=== PATIENT | female | born 1955 | race Caucasian/White ===

== ENCOUNTER → 2017-08-27 | Outpatient (CLI) | payer OTHER ==
[~2017-08-27] VITALS: Ht 165.1 cm; Wt 59.9 kg
[~2017-08-27] MED LIST: CHILDREN'S ASPI81 MG PO; CLONAZEPAM 1 MG1 M1 PO; CORTEF5 MG PO; FLUDROCORTISONE PO; LAMICTAL200 MG PO; LOXAPINE10 MG PO; NAPROSYN500 MG PO; NORCO 5-325 TA1 EACH PO; OMEPRAZOLE20 M2 PO; PAXIL20 MG PO; PERCOCET 7.5-31 EACH PO; [UNRECOGNIZED DRUG - OTHER] PO
--- NOTE | ~2017-08-27 | P ---
[facility] [place] [address] PROCEDURE REPORT Name: MICHELLE DE LA CRUZ Room #: REG [facility]#: [id number] Admission: 08/27/17 Attend Phys: Osmany Richmond Discharge: Date of : 51 Report #: [id number] THIS REPORT FOR: //name// CC: Osmany Hernandez DATE OF SERVICE: 08/27/2017 PROCEDURE PERFORMED: Upper endoscopy with biopsies. HISTORY OF PRESENT ILLNESS: The patient is a 61-year-old female with a history of gastroesophageal reflux disease and Kwan esophagus, last upper endoscopy was in 2014. Biopsies at that time showed Kwan's with no dysplasia. The patient is on daily PPI therapy. She denies any heartburn symptoms or dysphagia. Plan is for repeat upper endoscopy with biopsies. DESCRIPTION OF PROCEDURE: The risks and benefits of the procedure were explained to the patient, those risks including but not limited to bleeding, perforation, the risk of sedation. She understood these risks and gave informed consent. Sedation was given using propofol per Anesthesia. Next, using a standard Olympus upper endoscope, the scope was placed in the patient's mouth and advanced under direct vision through the esophagus, stomach and into the second portion of the duodenum. The larynx was normal in appearance. The upper and mid esophagus was normal. In the distal esophagus, there was approximately a 5-7 cm length of Kwan esophagus again noted. No evidence of esophagitis or stricture. Random biopsies were obtained. Upon entering the stomach, a medium-sized hiatal hernia was noted. Overall, the gastric mucosa was normal. The pylorus was normal and patent. The duodenal bulb, first and second portion were all normal. The scope was then withdrawn and the procedure terminated. The patient tolerated the procedure well. IMPRESSION: 1. Segment of Kwan esophagus, status post biopsies. 2. Hiatal hernia. 3. Otherwise, normal upper endoscopy. RECOMMENDATIONS: 1. Await biopsy results. 2. Continue daily PPI therapy. [facility] [place] [address] PROCEDURE REPORT Name: MICHELLE DE LA CRUZ [id number] Admission: 08/27/17 Attend Phys: Osamny Richmond Discharge: Date of : 51 Report #: [id number] Thank you for allowing me to participate in her care. By: 0834 0843 Osmany Fuentes MD /amrita
--- NOTE | ~2017-08-27 | P ---
[facility] [place] [address] PROCEDURE REPORT Name: MICHELLE DE LA CRUZ Room #: REG [facility]#: [id number] Admission: 08/27/17 Attend Phys: Osmany Richmond Discharge: Date of : 51 Report #: [id number] THIS REPORT FOR: //name// CC: Osmany Hernandez MD DATE OF SERVICE: 08/27/2017 PROCEDURE PERFORMED: Colonoscopy. HISTORY OF PRESENT ILLNESS: The patient is a 61-year-old female with a history of colon polyps, here for routine followup. No family history of colon cancer. She denies any symptoms. DESCRIPTION OF PROCEDURE: The risks and benefits of the procedure were explained to the patient, those risks including but not limited to bleeding, perforation, the risk of sedation. She understood these risks and gave informed consent. Sedation was given using propofol per Anesthesia. Next, a digital rectal exam was initially performed, which was normal. Next, using a standard Olympus colonoscope, the scope was placed in the patient's anus and advanced under direct vision to the cecum. The overall prep was good. Cecum and ileocecal valve were normal in appearance. Ascending, transverse and descending colon were normal. A few small scattered diverticula were noted in the sigmoid colon, no evidence of inflammation, otherwise normal. The rectal mucosa was normal. On retroflexion, no abnormalities were noted. The scope was then withdrawn and the procedure terminated. The patient tolerated the procedure well. IMPRESSION: 1. Sigmoid diverticulosis. 2. Otherwise, normal colonoscopy. RECOMMENDATIONS: Repeat colonoscopy in 10 years. Thank you for allowing me to participate in her care. By: 0917 0947 Osmany Fuentes MD /nt
== END | disposition home or self-care (01) ==
LOC: GI 06:56
DX: Z09 Encounter for follow-up examination after completed treatment for conditions other than malignant neoplasm (principal); Z86.010 Personal history of colon polyps; K57.30 Diverticulosis of large intestine without perforation or abscess without bleeding; K22.70 Barrett's esophagus without dysplasia; K44.9 Diaphragmatic hernia without obstruction or gangrene; F31.9 Bipolar disorder, unspecified; F41.9 Anxiety disorder, unspecified; Z90.710 Acquired absence of both cervix and uterus; Z98.890 Other specified postprocedural states; Z79.82 Long term (current) use of aspirin; Z79.899 Other long term (current) drug therapy
CPT/HCPCS: 43239; G0105; 62110; 62900

== ENCOUNTER 2017-09-11 05:34 | Emergency (ER) | payer OTHER ==
[~2017-09-11] VITALS: Ht 165.1 cm; Wt 59.9 kg
[2017-09-11 05:41] VITALS: BP 111/64
[2017-09-11] MEDS ORDERED: MOBIC15 MG PO (05:57)
== END 2017-09-11 06:03 | disposition home or self-care (01) ==
LOC: ER 05:34
DX: S50.02XA Contusion of left elbow, initial encounter (principal); F31.9 Bipolar disorder, unspecified; K21.9 Gastro-esophageal reflux disease without esophagitis; W22.8XXA Striking against or struck by other objects, initial encounter; Y93.89 Activity, other specified; Y92.89 Other specified places as the place of occurrence of the external cause; Y99.8 Other external cause status

== ENCOUNTER 2017-11-08 10:12 | Emergency (ER) | payer OTHER ==
[~2017-11-08] VITALS: Ht 165.1 cm; Wt 59.9 kg
[~2017-11-08 10:12] MED LIST changes: +MOBIC15 MG PO
[2017-11-08 10:15] VITALS: BP 114/47
[2017-11-08] MEDS ORDERED: MOBIC15 MG PO (11:08)
== END 2017-11-08 11:18 ==
LOC: ER 10:12
DX: S80.212A Abrasion, left knee, initial encounter (principal); F31.9 Bipolar disorder, unspecified; E27.40 Unspecified adrenocortical insufficiency; Z90.710 Acquired absence of both cervix and uterus; K21.9 Gastro-esophageal reflux disease without esophagitis; F41.9 Anxiety disorder, unspecified; W01.0XXA Fall on same level from slipping, tripping and stumbling without subsequent striking against object, initial encounter; Y92.89 Other specified places as the place of occurrence of the external cause; Y93.89 Activity, other specified; Y99.8 Other external cause status

== ENCOUNTER → 2019-01-29 | Outpatient (CLI) | payer OTHER ==
[~2019-01-29] VITALS: Ht 165.1 cm; Wt 68.5 kg
[~2019-01-29] MED LIST changes: +OXYBUTYNIN 5 MG5 M2 PO
--- NOTE | 2019-02-03 08:51 | P ---
[facility] [place] [address] PROCEDURE REPORT Name: MICHELLE DE LA CRUZ Room #: REG [facility]#: [id number] Admission: 01/29/19 Attend Phys: Osmany Richmond Discharge: Date of : 53 Report #: [id number] THIS REPORT FOR: //name// CC: Osmany Hernandez MD DATE OF SERVICE: 01/29/2019 PROCEDURE PERFORMED: Upper endoscopy with Botox injection. HISTORY OF PRESENT ILLNESS: The patient is a 63-year-old female with a history of progressive dysphagia. She has undergone upper endoscopy with dilation. She has a known hiatal hernia, tortuous esophagus, and later underwent esophageal manometry with findings consistent with likely achalasia. She also had an upper GI also consistent with achalasia. I had a discussion with her in the office recently about possible Botox injection versus surgery. The plan is to proceed with Botox injection of her lower esophageal sphincter. DESCRIPTION OF PROCEDURE: The risks and benefits of the procedure were explained to the patient, those risks including but not limited to bleeding, perforation and the risk of sedation. She understood these risks and gave informed consent. Sedation was given using propofol per anesthesia. Next, using a standard Olympus upper endoscope, the scope was placed in the patient's mouth and advanced under direct vision through the esophagus, stomach, and into the second portion of the duodenum. The larynx was normal in appearance. The upper esophagus was normal. In the mid and distal esophagus, it was once again dilated and tortuous. GE junction was normal. No evidence of esophagitis. Upon entering the stomach again, a large hiatal hernia was noted. Overall, the gastric mucosa was normal. The pylorus was normal and patent. The duodenal bulb, first and second portion were all normal. The scope was then brought back up into the patient's distal esophagus. I then proceeded with injecting Botox into the lower esophageal sphincter area in a 4-quadrant fashion, 1 mL in each quadrant. There was no evidence of bleeding after injection. At this point, the scope was then withdrawn and the procedure terminated. The patient tolerated the procedure well. IMPRESSION: 1. Findings consistent with achalasia and tortuous esophagus. 2. Large hiatal hernia. RECOMMENDATIONS: Observe the patient status post Botox injection. [address] [address] PROCEDURE REPORT Name: MICHELLE DE LA CRUZ Room #: REG [facility] Tegan#: [id number] Admission: 01/29/19 Attend Phys: Osmany Richmond Discharge: Date of : 53 Report #: [id number] Thank you for allowing me to participate in her care. <ELECTRONICALLY SIGNED> By: Osmany Fuentes MD 02/03/19 0851 0917 1458 Osmany Fuentes MD /nt
== END | disposition home or self-care (01) ==
LOC: GI 07:21
DX: K22.0 Achalasia of cardia (principal); R13.19 Other dysphagia; K22.8 Other specified diseases of esophagus; K44.9 Diaphragmatic hernia without obstruction or gangrene; K21.9 Gastro-esophageal reflux disease without esophagitis; F32.1 Major depressive disorder, single episode, moderate; F41.9 Anxiety disorder, unspecified; Z90.710 Acquired absence of both cervix and uterus; Z98.890 Other specified postprocedural states; Z79.899 Other long term (current) drug therapy; Z79.82 Long term (current) use of aspirin
CPT/HCPCS: 62110; 62900

== ENCOUNTER 2019-07-25 15:24 | Inpatient (IN) | payer OTHER ==
[~2019-07-25] VITALS: Ht 152.4 cm; Wt 62.5 kg
[2019-07-25 15:25] VITALS: BP 101/67
[2019-07-25 16:13] LABS: HEMATOCRIT 39.6 % (37.0-47.0); HEMOGLOBIN 12.7 gm/dL (12.0-15.0); MCH 29.4 pg (26.0-34.0); MCHC 32.1 g/dL (28.0-37.0); MCV 91.6 fL (80.0-100.0); PLATELET COUNT 206 thou/uL (150-400); RBC 4.32 mil/uL (4.20-5.00); WBC 4.6 thou/uL (4.0-11.0)
[2019-07-25 16:15] LABS: CALCIUM 8.6 mg/dL (8.5-10.1); CREATININE 1.1 mg/dL (0.6-1.0); POTASSIUM 3.4 mmol/L (3.5-5.1)
[2019-07-25 16:25] LABS: ALBUMIN 3.4 g/dL (3.4-5.0); TOTAL BILIRUBIN 0.3 mg/dL (<0.1-1.0); TROPONIN-I 0.16 ng/mL (<0.06)
[2019-07-25 16:44] LABS: ABSOLUTE NEUTROPHILS 3.7 thou/uL (1.4-8.2); METAMYELOCYTES 1 %
[2019-07-25 16:45] LABS: OVALOCYTES 1+; POIKILOCYTOSIS 1+
[2019-07-25 16:46] LABS: ANISOCYTOSIS 3+; PLATELET ESTIMATE NORMAL
[2019-07-25 17:45] VITALS: BP 91/51
[2019-07-25 18:24] VITALS: BP 102/61
[2019-07-25 19:37] VITALS: BP 110/66
--- NOTE | 2019-07-25 19:43 | NUR ---
PT. ARRIVED AT FLOOR AROUND 1814; PT. AOX4; FALL AT RISK; EDUCATED ABOUT CALLING BEFORE STANDING FROM BED; ST. UNDERSTANDING; IV FLUIDS STARTED; PO POTASSIUM GIVEN; NO C/O PAIN; SR ON THE MONITOR; PASSED ON REPORT;
[2019-07-25 23:18] LABS: URINE BILIRUBIN NEGATIVE (Negative); URINE BLOOD NEGATIVE (Negative); URINE CLARITY CLEAR; URINE COLOR YELLOW; URINE GLUCOSE-RANDOM* NEGATIVE (Negative); URINE KETONES NEGATIVE (Negative); URINE NITRITE-REFLEX NEGATIVE (Negative); URINE PROTEIN (DIPSTICK) NEGATIVE (Negative); URINE SPECIFIC GRAVITY 1.015 (1.005-1.035); URINE UROBILINOGEN 0.2 E.U./dl (0.2-1.0)
[2019-07-25 23:26] LABS: URINE LEUKOCYTES-REFLEX 2+ (Negative)
[2019-07-25 23:28] LABS: BACTERIA-REFLEX None Seen /HPF (None Seen); CASTS None Seen /LPF (None Seen); CRYSTALS None Seen /LPF (None Seen); MUCUS None Seen strn/LPF (None Seen); SQUAMOUS None Seen /LPF (0-3); URINE RBC None Seen /HPF (0-2); URINE WBC-REFLEX 0-5 Rare /HPF (0-5)
[2019-07-25 23:39] LABS: AMP/METHAMP Negative (Negative); BARBITURATES Negative (Negative); BENZODIAZEPINES Negative (Negative); COCAINE Negative (Negative); METHADONE Negative (Negative); OPIATES Negative (Negative); PCP Negative (Negative)
[2019-07-26] VITALS (7 sets, daily range): BP systolic 108–134; BP diastolic 65–88
[2019-07-26 03:07] LABS: GLYCOHEMOGLOBIN (HGB A1C) 4.9 % (4.8-5.6)
--- NOTE | 2019-07-26 03:09 | NUR ---
PT ADMITTED TO ROOM 201 AFTER SYNCOPAL EPISODE AT HOME, NO C/O PAIN, IV FLUIDS INFUSING IN R FA, UP WITH ASSIST TO VOID, UA SENT TO LAB, VSS, SAT 98% ON RA, k+ LOW AND REPLACED WITH PO, CONSENTS SIGNED, PT HOPES TO GO HOME SOON, WILL CON'T TO MONITOR PER PPOC.
--- NOTE | 2019-07-26 08:37 | EKG ---
[facility] [place] [address] ELECTROCARDIOGRAM REPORT Name: MICHELLE DE LA CRUZ Room #: 201- ADM IN M.R.#: [id number] Admission: 07/25/19 Attend Phys: Shanti Hale MD Discharge: Date of : 53 Report #: [id number] THIS REPORT FOR: cc: Johnathon Chiang MD, Christopher B. 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 : 1955 Requested By: Tim Sims Order Number: [id number] MD: Gio Hannon Measurements Intervals [place] Rate: 82 P: 42 TN: 154 QRS: 3 QRSD: 100 T: 62 QT: 436 QTc: 510 Interpretive Statements Sinus rhythm Borderline prolonged QT interval Artifact in lead(s) I,II,III,aVR,aVL,aVF No previous ECG available for comparison Electronically Signed On 07-26-2019 8:36:06 CDT by Gio Hannon [email or web address] <ELECTRONICALLY SIGNED> By: Gio Hannon MD, [facility] 07/26/19 0836 1551 1551 Gio Hannon MD, [facility] /EPI
--- NOTE | 2019-07-26 08:38 | EKG ---
[facility] [place] [facility] [place] [address] ELECTROCARDIOGRAM REPORT Name: MICHELLE DE LA CRUZ Room #: 201- ADM IN M.R.#: [id number] Admission: 07/25/19 Attend Phys: Shanti Hale MD Discharge: Date of : 53 Report #: [id number] THIS REPORT FOR: cc: Johnathon Chiang MD, Christopher B. MD Lundgren, Craig H. 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
[2019-07-26 10:27] LABS: ABSOLUTE NEUTROPHILS 3.3 thou/uL (1.4-8.2); BASOPHILS 1.1 % (0.0-2.0); EOSINOPHILS 5.5 % (0.0-3.0); HEMATOCRIT 35.9 % (37.0-47.0); HEMOGLOBIN 11.7 gm/dL (12.0-15.0); LYMPHOCYTES 24.5 % (24.0-44.0); MCH 29.3 pg (26.0-34.0); MCHC 32.5 g/dL (28.0-37.0); MCV 90.1 fL (80.0-100.0); MONOCYTES 8.3 % (1.0-8.0); PLATELET COUNT 217 thou/uL (150-400); POLYS 60.6 % (36.0-66.0); RBC 3.99 mil/uL (4.20-5.00); RDW 24.4 % (10.5-14.5); WBC 5.4 thou/uL (4.0-11.0)
[2019-07-26 10:36] LABS: ALBUMIN 3.1 g/dL (3.4-5.0); CALCIUM 8.5 mg/dL (8.5-10.1); CREATININE 0.7 mg/dL (0.6-1.0); MAGNESIUM 2.2 mg/dL (1.8-2.4); PHOSPHORUS 3.1 mg/dL (2.5-4.9); POTASSIUM 3.4 mmol/L (3.5-5.1); TOTAL BILIRUBIN 0.4 mg/dL (<0.1-1.0); TOTAL PROTEIN 6.3 g/dL (6.4-8.2)
[2019-07-26 11:13] LABS: ANISOCYTOSIS 3+
[2019-07-26 11:14] LABS: OVALOCYTES FEW; POIKILOCYTOSIS SLIGHT
--- NOTE | 2019-07-26 18:14 | NUR ---
ASSUMED CARE AT SHIFT CHANGE, ASSESSMENT DOCUMENTED, AND VSS. PATIENT DENIES ANY DISCOMFORT, AND WILL CONTINUE WITH POC.
[2019-07-27 00:07] LABS: CORTISOL RANDOM 10.1 ug/dL (())
[2019-07-27 04:35] VITALS: BP 141/68
[2019-07-27 05:18] LABS: CALCIUM 8.2 mg/dL (8.5-10.1); CREATININE 0.8 mg/dL (0.6-1.0); MAGNESIUM 1.9 mg/dL (1.8-2.4); POTASSIUM 3.5 mmol/L (3.5-5.1)
[2019-07-27 05:28] LABS: HEMATOCRIT 36.8 % (37.0-47.0); HEMOGLOBIN 11.8 gm/dL (12.0-15.0); MCH 29.1 pg (26.0-34.0); MCHC 32.1 g/dL (28.0-37.0); MCV 90.6 fL (80.0-100.0); PLATELET COUNT 216 thou/uL (150-400); RBC 4.07 mil/uL (4.20-5.00); RDW 24.7 % (10.5-14.5); WBC 5.4 thou/uL (4.0-11.0)
--- NOTE | 2019-07-27 05:41 | NUR ---
Pt. stated she slept well during the night. Up with assist to bathroom with steady gait. No syncopal episode or dysrythmia.IV came out when she got up this am. New IV placed on left FA.Bed alarm on for safety and she calls appropriately for assistance. Making progress towards care plan goals.
[2019-07-27 07:25] VITALS: BP 130/67
[2019-07-27 07:50] LABS: ABSOLUTE NEUTROPHILS 2.9 thou/uL (1.4-8.2); PLATELET ESTIMATE NORMAL
--- NOTE | 2019-07-27 10:34 | NUR ---
Sp with patient via phone. 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 She lives in independent home with xhusband who is avail to assist at ri. She reports her PCP is Dr Greg Chiang. Plans home independently at ri. She rec disability. Casemgt following.
[2019-07-27 11:10] VITALS: BP 118/74; BP 122/76; BP 125/70
[2019-07-27 16:10] VITALS: BP 116/80
--- NOTE | 2019-07-27 17:11 | NUR ---
ASSUMED CARE AT SHIFT CHANGE, ASSESSMENT DOCUMENTED, ALERT AND ORIENT AND UP ADLIB, VSS AND AFEBRILE, AND DENIES ANY DISCOMFORT. AND WILL CONTINUE WITH POC.
[2019-07-27 19:52] VITALS: BP 124/73
--- NOTE | 2019-07-28 04:47 | NUR ---
Pt. stated she slept well during the night.Up ad jaydon in room with steady gait. No syncopal episode. Progressing towards discharge goals.
[2019-07-28 04:55] VITALS: BP 133/74
[2019-07-28 05:10] LABS: HEMATOCRIT 38.5 % (37.0-47.0); HEMOGLOBIN 12.6 gm/dL (12.0-15.0); MCH 29.6 pg (26.0-34.0); MCHC 32.7 g/dL (28.0-37.0); MCV 90.4 fL (80.0-100.0); RBC 4.26 mil/uL (4.20-5.00); RDW 24.4 % (10.5-14.5); WBC 5.2 thou/uL (4.0-11.0)
[2019-07-28 05:45] LABS: ANION GAP 10 mmol/L (7-16); BUN 10 mg/dL (7-18); CALCIUM 8.7 mg/dL (8.5-10.1); CHLORIDE 108 mmol/L (98-107); CO2 27 mmol/L (21-32); CREATININE 0.9 mg/dL (0.6-1.0); GLUCOSE 89 mg/dL (74-106); POTASSIUM 3.9 mmol/L (3.5-5.1); SODIUM 145 mmol/L (136-145); TROPONIN-I <0.06 ng/mL (<0.06)
[2019-07-28 07:10] VITALS: BP 131/82
--- NOTE | 2019-07-28 09:32 | NUR ---
PT ALERT AND ORIENTED TIMES FOUR. VSS, SR ON TELE. PT DENIES PAIN/SOA. PT TOLERATED MEDS AND BREAKFAST. PT UP AB HANK WITH STEADY GAIT. PLANS FOR DISCHARGE TODAY.
--- NOTE | 2019-07-28 10:19 | HC ---
[facility] [place] [address] CONSULTATION Name: MICHELLE DE LA CRUZ Room #: 201-P [facility] IN M.R.#: [id number] Admission: 07/25/19 Attend Phys: Shanti Hale MD Discharge: Date of : 53 Report #: [id number] THIS REPORT FOR: cc: Johnathon Chiang MD,Bertin Andre MD, MD ~ CC: Shanti Chiang DATE OF SERVICE: 07/26/2019 CONSULTING: Dr. Sotelo. REASON FOR CONSULTATION: Hyperglycemia, adrenal insufficiency. HISTORY OF PRESENT ILLNESS: This is a 63-year-old female patient who was admitted yesterday following a syncopal episode, which was not preceded by much in terms of symptoms on the day prior to presentation. The patient denies chest pain, seizure activity or similar episodes in the past. The patient does not have any prior history of diabetes mellitus or otherwise abnormal blood glucose values. The patient notes that she was diagnosed with adrenal insufficiency about 4 years ago and was treated with oral steroids for 2 years, but then had none of these for about 2 years as she ran out and never pursued a refill for these according to her; however, she denies any frequent occurring of nausea, vomiting, lightheadedness, dizziness, or syncope besides the presenting episode or weight changes. In fact, she had a major esophageal resection surgery about 6 weeks ago and did very well preoperatively without noted complications. REVIEW OF SYSTEMS: CONSTITUTIONAL: Intermittent issues with fatigue, tiredness, but not weight changes, fever or chills. HEENT: Negative for sore throat, sinus pain or ear drainage. PULMONARY: Negative for shortness of breath, cough or hemoptysis. CARDIAC: Negative for chest pain, palpitations, but noted for the syncopal episode on presentation. GASTROINTESTINAL: Negative for abdominal pain, nausea, vomiting or changes in bowel movement frequency. NEUROLOGY: Negative for loss of consciousness, other than the presenting episode, seizure activity or frequent severe headaches. PSYCHIATRIC: Negative for delusions or hallucinations. The patient has bipolar at baseline and is controlled on the current medical therapy. DERMATOLOGY: Negative for rash, ulceration or other major abnormalities. Otherwise, review of systems noncontributory other than those mentioned in HPI. [address] [address] CONSULTATION Name: MICHELLE DE LA CRUZ Room #: 201-P [facility] IN M.R.#: [id number] Admission: 07/25/19 Attend Phys: Shanti Hale MD Discharge: Date of : 51 Report #: [id number] PAST MEDICAL HISTORY: 1. GERD. 2. Bipolar disorder. 3. Adrenal insufficiency. 4. Depression and anxiety. 5. Bilateral carpal tunnel syndrome. OUTPATIENT MEDICATIONS: Include lamotrigine 200 mg at bedtime, omeprazole 20 mg daily, loxapine 30 mg at bedtime, oxybutynin 5 mg q.a.m., Paxil 10 mg daily. ALLERGIES: No known drug allergies. FAMILY HISTORY: Noncontributory. SOCIAL HISTORY: The patient denies use of tobacco, alcohol or illicit drugs. She is . She does not have children. PHYSICAL EXAMINATION: GENERAL: Pleasant female patient who is not in apparent pain or distress. VITAL SIGNS: Blood pressure is 125/72 mmHg, heart rate is 77 beats per minute, respiration 22 per minute, temperature 36.6 degrees. CONSTITUTIONAL: The patient is sitting upright in bed, appears comfortable, not in pain or distress. HEENT: Anicteric sclerae. Intact extraocular motions. NECK: Supple, without JVD, carotid bruits or lymphadenopathy. I do not appreciate thyromegaly. CHEST: Noted for moderate entry bilaterally with scattered rales. No rhonchi, crackles or wheezes. HEART: Regular rate and rhythm without murmurs or gallops. ABDOMEN: Soft, lax. No guarding. Active bowel sounds. EXTREMITIES: Lower extremity exam is negative for ankle edema. The patient has good pulses bilaterally. NEUROLOGIC: Awake, alert and oriented to time, place and person. The remainder of her examination is nonfocal. PSYCHIATRIC: Pleasant, interactive. Normal mood and affect. LABORATORY DATA: Blood glucose on arrival was 343 mg/dL and has since dropped between 62 and 142 mg/dL. Hemoglobin A1c 4.9%. Sodium 145, potassium 3.4, chloride 110, CO2 of 24, anion gap 11, BUN 16, creatinine 0.7, AST 31, total bilirubin 0.4, calcium 8.5, phosphorus 3.1, magnesium 2.2, alkaline phosphatase 97, ALT 24, total protein 6.3, albumin 3.1. EGFR 84. Troponin 0.54. White blood count 5.4, hemoglobin 11.7, hematocrit 35.9, platelets 217. ASSESSMENT AND PLAN: 1. Hyperglycemia. The patient had one documentation of hyperglycemia at [address] [facility] [address] [place] [address] CONSULTATION Name: MICHELLE DE LA CRUZ Room #: 201-P ADM IN M.R.#: [id number] Admission: 07/25/19 Attend Phys: Shanti Hale MD Discharge: Date of : 51 Report #: [id number] mg/dL on arrival. However, none of her remaining documented blood glucose values were within the diabetic range or outside the normal range. Furthermore, her hemoglobin A1c was strictly normal at 4.9%. The patient does not have any symptoms that could correlate with hyperglycemia. I believe that the isolated documentation of hyperglycemia on arrival might have had to do with the recent state of effort initiated and dropped to the hospital and could possibly be confounded by measurement error. In order to further confirm normal glycemia, I will ask for fructose and mean measurement to further ascertain her overall level of control over the past few weeks. Until this confirmation is received, I will continue to monitor her blood glucose values for informational purposes. 2. Adrenal insufficiency. The patient had a diagnosis of adrenal insufficiency established 4 years ago and was actually under glucocorticoid replacement therapy for 2 years. Interestingly, she has been without any form of replacement therapy for over 2 years and has done rather well without any symptoms that could imply decompensated adrenal insufficiency, especially around the time of her major esophageal surgery recently. That said, I am doubtful that she truly has adrenal insufficiency. Naturally, ruling out or ruling in this diagnosis is of extreme importance so as to provide the patient with a sound medical advice in terms of what to do going forward. Basically, if she is indeed adrenal insufficiency should be on glucocorticoids therapy on an ongoing basis and should receive stress dosing at times of physiologic stress. Conversely, if she does not have adrenal insufficiency, then a glucocorticoid therapy could be detrimental to her. I will obtain a random cortisol level, if sufficient to rule out adrenal insufficiency, that would be great, but if not, I would proceed to an adrenal stimulation test utilizing cosyntropin. 3. Bipolar, depression, anxiety. The patient is stable on a regimen of Lamictal, Paxil and she is to continue the same. I certainly appreciate this consultation by Dr. Sotelo. <ELECTRONICALLY SIGNED> By: Bertin Blanco MD 07/28/19 1019 1323 1341 Bertin Blanco MD /nt
[2019-07-28 11:13] VITALS: BP 122/67
[2019-07-28 11:52] VITALS: BP 122/67
== END 2019-07-28 13:38 | disposition home or self-care (01) | DRG 280 ==
LOC: ER 15:24 → 2N 18:12
PROVIDERS: Internal Medicine; Physician Assistant; ADMIT Hospitalist
DX: I21.4 Non-ST elevation (NSTEMI) myocardial infarction (principal); N17.0 Acute kidney failure with tubular necrosis; E44.1 Mild protein-calorie malnutrition; E27.40 Unspecified adrenocortical insufficiency; F31.9 Bipolar disorder, unspecified; K21.9 Gastro-esophageal reflux disease without esophagitis; F41.9 Anxiety disorder, unspecified; E87.6 Hypokalemia; R73.9 Hyperglycemia, unspecified; F12.90 Cannabis use, unspecified, uncomplicated; N18.9 Chronic kidney disease, unspecified; Z90.710 Acquired absence of both cervix and uterus; Z82.3 Family history of stroke; Z79.899 Other long term (current) drug therapy
CPT/HCPCS: 10081

== ENCOUNTER → 2019-10-29 | Outpatient (CLI) | payer OTHER ==
[~2019-10-29] VITALS: Ht 165.1 cm; Wt 62.6 kg
[~2019-10-29] MED LIST changes: +FLONASE 0.05%50 MCG NARES; +OLANZAPINE15 MG PO
--- NOTE | 2019-10-30 17:34 | P ---
[facility] [place] [address] PROCEDURE REPORT Name: MICHELLE DE LA CRUZ Room #: REG [facility]#: [id number] Admission: 10/29/19 Attend Phys: Osmany Richmond Discharge: Date of : 51 Report #: [id number] THIS REPORT FOR: cc: Johnathon Chiang MD,Osmany Stokes MD, MD ~ CC: Osmany Gracia MD DATE OF SERVICE: 10/29/2019 PROCEDURE PERFORMED: Upper endoscopy with balloon dilation. HISTORY OF PRESENT ILLNESS: The patient is a 63-year-old female with a long history of recurrent dysphagia, who was diagnosed with achalasia and underwent partial esophagectomy and gastric pull-up by Dr. Domenico rGacia in June of this year. She also has a history of Kwan's esophagus as well. She has been having intermittent dysphagia after the surgery. She has had a few episodes of feeling short of breath after eating. She denies any nausea or vomiting. She has had weight loss of approximately 12 pounds since her surgery as well. Plan is for EGD for further evaluation and possible dilation. DESCRIPTION OF PROCEDURE: The risks and benefits of the procedure were explained to the patient, those risks including, but not limited to bleeding, perforation and the risk of sedation. She understood these risks and gave informed consent. Sedation was given using propofol per anesthesia. Next, using a standard Olympus upper endoscope, the scope was placed in the patient's mouth and advanced under direct vision into the esophagus, stomach and into the second portion of the duodenum. The larynx was normal in appearance. The proximal esophagus was normal. The surgical anastomosis was noted. There was a pink-appearing granulation tissue adherent to the surgical anastomotic site. I advanced the scope into the stomach consistent with gastric pull-up. There was a mild fluid residual. This was aspirated away. The gastric mucosa was normal. The pylorus was normal and patent. The duodenal bulb, first and second portion were normal. The scope was then brought back up into the surgical anastomosis site. At this point, the granulation tissue actually was dislodged. Upon further review, this may actually represent a pink globule of her denture cream; however, this could be granulation tissue. Therefore, to verify this, this was grasped with a basket and sent to pathology. There was no bleeding of the surgical anastomosis site. No ulcerations were also noted at the surgical anastomosis site and it was fairly wide open; however, due to her symptoms, I did proceed with balloon dilation of the site initially with a [address] to 20 mm balloon and this was held into in place for one minute. There was no evidence of mucosal tear or bleeding after dilation. At this point, the scope was then withdrawn and the procedure terminated. The patient tolerated [address] [address] PROCEDURE REPORT Name: MICHELLE DE LA CRUZ Room #: REG [facility] Javed#: [id number] Admission: 10/29/19 Attend Phys: Osmany Richmond Discharge: Date of : 51 Report #: [id number] the procedure well. IMPRESSION: 1. Possible granulation tissue versus medication adherent to the surgical anastomosis site. This was removed and sent to the lab. 2. No obvious stricture at the anastomosis site; however, balloon dilation was performed. 3. Mild fluid residual within the stomach consistent with possible gastroparesis type changes. RECOMMENDATIONS: 1. Await or observe the patient post-dilation. 2. We will discuss possible addition of Reglan with the patient before meals. Thank you for allowing me to participate in her care. <ELECTRONICALLY SIGNED> By: Osmany Fuentes MD 10/30/19 1734 0931 1142 Osmany Fuentes MD /nt
--- NOTE | 2019-11-01 18:06 | PATH ---
[facility] [place] [address] [place] [address] PATHOLOGY RPT PROCEDURE Name: NKECHI DE LA CRUZ Room #: REG [facility].#: [id number] Admission: 10/29/19 Date of : 51 Discharge: Report #: [id number] Path Case #: [id number] [facility] Accession Number: [id number] . 01 Material submitted: . colon - POSSIBLE GRANULATION TISSUE FROM ANASTOMOTIC SITE . 01 Clinical history: . None provided . 02 Diagnosis: Tissue designated as, "possible granulation tissue from anastomotic site", endoscopic biopsy: - Detached atypical squamous epithelial cells amongst debris. - No intact tissue present for examination. . (IUV:mml; 11/01/2019) QLM 11/01/2019 1549 Local . 02 Electronically signed: . Linda Burris MD, Pathologist NPI- [id number] . 01 Gross description: . Received in formalin labeled "Nkechi De La Cruz, possible granulation tissue from anastomotic site" is a 2.8 x 2.0 x 0.4 cm aggregate of naidu-white friable mucinous material. The specimen is submitted entirely in A1. ([facility]; 10/31/2019) [facility] 10/31/2019 1248 Local . 02 Pathologist provided ICD-10: K91.89 . 02 CPT . 378023 Specimen Comment: Report sent to / DR BRADLEY Performed at: [address], [place] [id number] MD Mickey Butts MD Phone: [phone] Performed at: [address] [id number] MD Linda Burris MD Phone: [phone]
== END | disposition home or self-care (01) ==
LOC: GI 07:52
PROVIDERS: ATTEND Specialist
DX: R13.10 Dysphagia, unspecified (principal); K21.9 Gastro-esophageal reflux disease without esophagitis; F31.9 Bipolar disorder, unspecified; F41.9 Anxiety disorder, unspecified; Z98.890 Other specified postprocedural states; Z79.899 Other long term (current) drug therapy; Z90.710 Acquired absence of both cervix and uterus; Z11.59 Encounter for screening for other viral diseases
CPT/HCPCS: 62110; 62900

== ENCOUNTER 2019-11-08 15:48 | Inpatient (IN) | payer OTHER ==
[~2019-11-08] VITALS: Ht 170.2 cm; Wt 61.9 kg
[2019-11-08 15:48] VITALS: BP 186/99
[2019-11-08 16:09] LABS: ABSOLUTE NEUTROPHILS 4.3 thou/uL (1.4-8.2); BASOPHILS 1.1 % (0.0-2.0); EOSINOPHILS 3.3 % (0.0-3.0); HEMOGLOBIN 13.8 gm/dL (12.0-15.0); LYMPHOCYTES 41.7 % (24.0-44.0); MCH 31.2 pg (26.0-34.0); MCV 94.5 fL (80.0-100.0); PLATELET COUNT 363 thou/uL (150-400); POLYS 46.9 % (36.0-66.0); RBC 4.44 mil/uL (4.20-5.00); RDW 14.5 % (10.5-14.5); WBC 9.1 thou/uL (4.0-11.0)
[2019-11-08 16:21] LABS: ANION GAP 12 mmol/L (7-16); BUN 9 mg/dL (7-18); CALCIUM 8.3 mg/dL (8.5-10.1); CHLORIDE 105 mmol/L (98-107); CO2 26 mmol/L (21-32); GLUCOSE 282 mg/dL (74-106); POTASSIUM 3.7 mmol/L (3.5-5.1); SODIUM 143 mmol/L (136-145)
[2019-11-08 16:26] LABS: TROPONIN-I <0.06 ng/mL (<0.06)
[2019-11-08 16:59] LABS: URINE BILIRUBIN NEGATIVE (Negative); URINE BLOOD 1+ (Negative); URINE CLARITY CLEAR; URINE COLOR YELLOW; URINE GLUCOSE-RANDOM* TRACE (Negative); URINE KETONES NEGATIVE (Negative); URINE LEUKOCYTES-REFLEX NEGATIVE (Negative); URINE NITRITE-REFLEX NEGATIVE (Negative); URINE PROTEIN (DIPSTICK) 2+ (Negative); URINE SPECIFIC GRAVITY 1.015 (1.005-1.035); URINE UROBILINOGEN 0.2 E.U./dl (0.2-1.0)
[2019-11-08 17:10] LABS: AMP/METHAMP Negative (Negative); BARBITURATES Negative (Negative); BENZODIAZEPINES Negative (Negative); COCAINE Negative (Negative); METHADONE Negative (Negative); OPIATES Negative (Negative); PCP Negative (Negative)
[2019-11-08 17:11] LABS: BE(vivo) -3.1 mmol/L (-2 to +3); HCO3 23.2 mmol/L (22.0-26.0); PCO2 45.9 mmHg (35.0-45.0); PO2 285.7 mmHg (80.0-100.0); pH 7.321 (7.360-7.450); sO2 99.6 % (92.0-98.0)
[2019-11-08 17:32] LABS: CASTS None Seen /LPF (None Seen); CRYSTALS None Seen /LPF (None Seen); HYALINE CASTS 0-3 Few /LPF (None Seen); SQUAMOUS 0-3 Few /LPF (0-3)
[2019-11-08 17:34] LABS: BACTERIA-REFLEX 1-9 Few /HPF (None Seen); URINE RBC 0-2 Rare /HPF (0-2); URINE WBC-REFLEX None Seen /HPF (0-5)
--- NOTE | 2019-11-08 19:48 | NUR ---
VAT CONSULTED FOR A CL FOR THIS PT IN ER12 POST CODE. MED NECESSITY PER DR DREW PT IS INTUBATED. 5DRTLCL PLACED RT IJ WITH TIP AT [facility]J. PLEASE SEE NI FOR DETAILS LOT [id number]
[2019-11-08 20:30] VITALS: BP 92/50
[2019-11-08] MEDS ORDERED: REGLAN 5 MG TAB5 MG PO (21:44)
[2019-11-08 22:00] VITALS: BP 137/82
[2019-11-08 23:00] VITALS: BP 88/49
[2019-11-09] VITALS (57 sets, daily range): BP systolic 40–162; BP diastolic 21–85
[2019-11-09 03:56] LABS: HCO3 21.8 mmol/L (22.0-26.0); PCO2 42.5 mmHg (35.0-45.0); PO2 143.4 mmHg (80.0-100.0); pH 7.328 (7.360-7.450); sO2 98.7 % (92.0-98.0)
[2019-11-09 07:21] LABS: ABSOLUTE NEUTROPHILS 6.2 thou/uL (1.4-8.2); HEMATOCRIT 36.3 % (37.0-47.0); HEMOGLOBIN 11.9 gm/dL (12.0-15.0); LYMPHOCYTES 6.1 % (24.0-44.0); MCH 30.6 pg (26.0-34.0); MCHC 32.8 g/dL (28.0-37.0); MCV 93.3 fL (80.0-100.0); MONOCYTES 3.8 % (1.0-8.0); POLYS 90.1 % (36.0-66.0); RBC 3.88 mil/uL (4.20-5.00); RDW 14.4 % (10.5-14.5); WBC 6.8 thou/uL (4.0-11.0)
[2019-11-09 07:27] LABS: PLATELET COUNT 215 thou/uL (150-400)
[2019-11-09 07:37] LABS: ALBUMIN 3.1 g/dL (3.4-5.0); CALCIUM 7.8 mg/dL (8.5-10.1); CREATININE 0.7 mg/dL (0.6-1.0); MAGNESIUM 2.1 mg/dL (1.8-2.4); POTASSIUM 3.3 mmol/L (3.5-5.1); TOTAL BILIRUBIN 0.4 mg/dL (0.2-1.0); TOTAL PROTEIN 6.3 g/dL (6.4-8.2)
--- NOTE | 2019-11-09 08:00 | EKG ---
[facility] [place] [address] ELECTROCARDIOGRAM REPORT Name: MICHELLE DE LA CRUZ Room #: 246-P ADM IN M.R.#: [id number] Admission: 11/08/19 Attend Phys: Bill Braden MD Discharge: Date of : 51 Report #: [id number] THIS REPORT FOR: cc: Johnathon Chiang MD, Christopher B. MD Lundgren,Gio Anthony MD [facility] ~ THIS REPORT FOR: //name// [facility] ED Test Date: 2019-11-08 Test Time: 16:49:20 Pat Name: MICHELLE DE LA CRUZ Department: Room: [facility] Gender: F [employer]: declan : 1955 Requested By: Sandro Rendon Order Number: [id number] MD: Gio Hannon Measurements Intervals [place] Rate: 115 P: 66 WY: 149 QRS: 138 QRSD: 98 T: 65 QT: 365 QTc: 505 Interpretive Statements Possible limb lead reversal Sinus tachycardia Probable lateral infarct, old Prolonged QT interval Compared to ECG 07/25/2019 16:50:58 Myocardial infarct finding now present Electronically Signed On 11-09-2019 8:00:06 CDT by Gio Hannon [email or web address] <ELECTRONICALLY SIGNED> By: Gio Hannon MD, [facility] 11/09/19 0800 1649 1649 Gio Hannon MD, [facility] /EPI
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
--- NOTE | 2019-11-09 15:37 | NUR ---
Nutrition: Pt npo day 2. REC start Jevity 1.5 to reach 55 mL/hr if unable to extubate.
--- NOTE | 2019-11-09 18:24 | NUR ---
ASSUMED CARE @ 0700 11/09/19, PT ASSESSMENTS AND VSS COMPLETE PER ICU PROTOCOL. PT ENCOUNTERED ON FENTANYL, VERSED, PROPFOL GTT, PT EXTREMELY RESTLESS AND AGITATED, PROPOFOL GTT INCREASED, PT BECOMES HYPOTENSIVE, DR RASMUSSEN AT BEDSIDE, ORDERS RECIEVED TO USE PRECEDEX INSTEAD OF PROPOFOL. THIS IS INITIATED, HOURS LATER WHEN PT BECOMES WELL SEDATED, PT STARTS TO BECOME BRADYCARDIC, LOWEST SEEN WAS 39, PRECEDEX IS TURNED OFF AND FENTANYL AND VERSED ARE TITRATED DOWN. DR GILLESPIE IS MADE AWARE. DR GILLESPIE EXPRESSES THAT HE IS OK WITH HR IN THE 40'S LONG THE PT'S BP IS HOLDING NORMAL. IT WAS THEN COMMUNICATED THAT THE LOWEST HR SEEN WAS 39, NO FURTHER INTERVENTION ORDERED AT THIS TIME. UO DECLINED FOR TWO HOURS STRAIGHT, DR RASMUSSEN WAS MADE AWARE OF THIS, FLUIDS ORDERED. WILL CONT TO MONITOR. EX JULIANNE CALLS IN THE AM, IT WAS COMMUNICATED TO HIM THAT PT IS COMMUNICATING TO THE STAFF THAT SHE DOES NOT WANT TO BE INTUBATED, HE STATES THAT PT IS EXTREMELY BIPOLAR AND THAT HE MAKES THE DECISIONS ON HER CARE AND SHE IS A FULL CODE.
[2019-11-10] VITALS (61 sets, daily range): BP systolic 103–182; BP diastolic 54–95
[2019-11-10 04:31] LABS: BE(vivo) -5.1 mmol/L (-2 to +3); HCO3 19.2 mmol/L (22.0-26.0); PCO2 33.8 mmHg (35.0-45.0); PO2 109.3 mmHg (80.0-100.0); pH 7.373 (7.360-7.450); sO2 97.9 % (92.0-98.0)
[2019-11-10 06:04] LABS: ABSOLUTE NEUTROPHILS 7.8 thou/uL (1.4-8.2); BASOPHILS 0.1 % (0.0-2.0); HEMATOCRIT 38.6 % (37.0-47.0); HEMOGLOBIN 12.8 gm/dL (12.0-15.0); LYMPHOCYTES 5.3 % (24.0-44.0); MCH 30.5 pg (26.0-34.0); MCHC 33.1 g/dL (28.0-37.0); MCV 92.1 fL (80.0-100.0); MONOCYTES 1.7 % (1.0-8.0); PLATELET COUNT 225 thou/uL (150-400); POLYS 92.9 % (36.0-66.0); RBC 4.19 mil/uL (4.20-5.00); RDW 14.3 % (10.5-14.5); WBC 8.4 thou/uL (4.0-11.0)
[2019-11-10 06:19] LABS: CALCIUM 8.1 mg/dL (8.5-10.1); CREATININE 0.6 mg/dL (0.6-1.0); POTASSIUM 3.9 mmol/L (3.5-5.1); TOTAL BILIRUBIN 0.5 mg/dL (0.2-1.0); TOTAL PROTEIN 6.4 g/dL (6.4-8.2)
--- NOTE | 2019-11-10 09:24 | NUR ---
ASSUMED PT CARE AT AROUND 1900, PT IS AWAKE, RESTLESS ON VERSED AND FENTANYL GTTS, ASSESSMENTS CHARTED, PT U/O 350, BLADDER SCAN WITH ONLY 13ML, BS STABLE, PT AGITATED AND KEEPS POINTING AT THE TUBE, PRECEDEX RESTARTED THEN TURNED OFF DUE TO INCREASED BP AND DECREASED HR UPTO 36, REMAINS ON RESTRAINS, PASSED ON REPORT TO DAY NURSE
--- NOTE | 2019-11-10 11:34 | NUR ---
All sedation off since approx 1045 to allow wake up assessment and attempt CPAP trial. Pt did awaken and began sitting up in the bed. Restless but not clearly following commands. Localizes with her hand to ET tube. RT placed pt on CPAP for approximately 5 minutes but placed back on previous vent settings. Pt drifted back to sleep and unable to maintain adequate volumes for CPAP trial. May attempt again later if pt able to remain calm off sedaton.
--- NOTE | 2019-11-10 12:23 | NUR ---
Dr Fung on unit making rounds. Pt found sitting up in bed with hands restrained and trying to get her legs over the side of the bed. Pt had extubated herself and pulled out her OG tube. Pt able to state her name but unable to answer otehr orientation questions. Pt placed on a nasal cannula at 4 liters. O2 sat 98 on room air before cannula applied. Dr Fung talked with the patient and looked at her left hand which remains puffy and is cool to touch. Restraints removed. Bed alarm remains activated. .
--- NOTE | 2019-11-10 15:39 | NUR ---
NURSING REQUESTED SWALLOW EVALUATION TO DETERMINE SAFETY OF ORAL MEDICATIONS. PATIENT MUST BE 24 HRS POST EXTUBATION BEFORE BEDSIDE SWALLOW EVALUATION CAN BE COMPLETED. HOWEVER, PATIENT WAS OBSERVED BY BALL MACHINE OPERATOR WITH SMALL SIPS OF WATER AND TSPS OF APPLESAUCE WITH NO OVERT S/S OF ASPIRATION. BALL MACHINE OPERATOR ADVISED PILLS TO BE GIVEN WITH APPLESAUCE. BALL MACHINE OPERATOR TO COMPLETE CLINICAL BEDSIDE SWALLOW EVALUATION ON 11/10/2019 AND PROVIDE DIET RECOMMENDATIONS AT THAT TIME. BALL MACHINE OPERATOR RECOMMENDS PATIENT REMAIN NPO WITH THE EXPECTION OF MEDICATIONS AND SMALL SIPS OF WATER UNTIL FULL ASSESSMENT CAN BE COMPLETED.
--- NOTE | 2019-11-10 19:00 | NUR ---
Pt remained off the ventilator and is currently on 3 liter cannula. Pt does have a congested cough. Speech therapist cleared patient for taking oral medications with applesauce and sip of water. Improving cognition and understanding of recent events. Report given to RN assuming care. Continue to support and work toward goals.
[2019-11-11] VITALS (11 sets, daily range): BP systolic 11–160; BP diastolic 81–95
--- NOTE | 2019-11-11 01:40 | NUR ---
ASSUMED CARE OF PATIENT AT 1900. ALERT TO SELF AND PLACE. STILL FUZZY ABOUT EVENTS OVER THE LAST FEW DAYS. PATIENT REMOVED NC. SATS REMAIN AT 97% WHILE SLEEPING. ANTICIPATING FORMAL SWALLOW EVALUATION. NO OTHER S/S OF DISTRESS, PROGRESSING WELL TOWARDS POC GOALS.
[2019-11-11 06:03] LABS: HEMATOCRIT 39.8 % (37.0-47.0); HEMOGLOBIN 13.4 gm/dL (12.0-15.0); MCH 30.6 pg (26.0-34.0); MCHC 33.6 g/dL (28.0-37.0); MCV 91.2 fL (80.0-100.0); RBC 4.36 mil/uL (4.20-5.00); WBC 14.9 thou/uL (4.0-11.0)
[2019-11-11 06:27] LABS: CALCIUM 8.6 mg/dL (8.5-10.1); CREATININE 0.7 mg/dL (0.6-1.0); POTASSIUM 3.1 mmol/L (3.5-5.1)
--- NOTE | 2019-11-11 14:28 | NUR ---
Case discussed with the care team and therapy naomi noted. Pt confused and needing assist with gait and adl's. Her baseline from her ex Ryan, with whom she lives and her previous inpt stay [place] are very different from her presentation today. Will ask for psych, neuro, rehab 5N, and ST cog evals. ST has recommended a puree diet. Will follow for additional imput from the care team. Pt may benefit from Rehab,snf or referrals pending her progress.
--- NOTE | 2019-11-11 18:46 | NUR ---
RECEIVED PT'S CARE AROUND 0736; PT. ON BED; ALERT; DURING AM ASSESSMENT PT. ALERT TO PERSON & TIME; FORGETFUL; CONFUSED; AM MEDICATION GIVEN; AT SHIFT CHANGE PT. D/C CENTRAL LINE; PHYSICIAN NOTIFIED DURING ROUNDING; PT. ABLE TO TOLERATE PO MEDICATIONS; PHYSICIAN NOTIFIED ABOUT PSYCH MEDICATIONS; ORDERS ON PLACED; IV STARTED; FLUIDS RUNNING; D/C ELDER ABLE TO VOID; SR ON THE MONITOR; ASSESSMENT CHARGED; FOLLOWING POC; WILL PASS ON REPORT;
[2019-11-12 03:30] VITALS: BP 132/82
--- NOTE | 2019-11-12 08:29 | NUR ---
ASSUMED PT CARE AT THE CHANGE OF SHIFT, PT IS AWAKE, ALERT AND ORIENTED, MAKES NEEDS KNOWN, SR/SB ON THE MONITOR, ASSESSMENTS CHARTED, MEDICATIONS GIVEN PER MAR, NO ACUTE ISSUES OVERNIGHT, PROGRESSING WELL TOWARDS THE PLAN OF CARE
[2019-11-12 09:15] VITALS: BP 122/59
[2019-11-12 09:32] LABS: MAGNESIUM 1.8 mg/dL (1.8-2.4); POTASSIUM 3.3 mmol/L (3.5-5.1)
[2019-11-12 12:30] VITALS: BP 136/71
[2019-11-12] MEDS ORDERED: CEFDINIR300 MG PO (12:48)
--- NOTE | 2019-11-12 13:27 | NUR ---
RECEIVED PT'S CARE AROUND 0710; PT. ON BED; ALERT; DURING AM ASSESSMENT PT. AOX4; NO C/O PAIN; ABLE TO TAKE MEDICATION; TOLERATED WELL; ABLE TO GO TO THE RESTHROOM WITH SB; PHYSICIAN NOTIFIED OF IMPROVE MENTAL STATUS DURING ROUNDING; ORDER RECEIVED; D/C FLUIDS; IMPROVED APPETITE; RE-EVALUATION BY PT/OT & ST; PT. REFUSED HOME HEALTH; PHYSICIAN NOTIFIED; D/C ORDERS ON PLACED; PT. NOTIFIED; EDUCATED ABOUT D/C PROCESS; ST. UNDERSTANDING; ASSESSMENT CHARGED; FOLLOWED POC; WORKING ON D/C PAPERS;
[2019-11-12 13:38] VITALS: BP 136/71
--- NOTE | 2019-11-12 15:04 | NUR ---
Case discussed with the care team. Pt's mental status and mobility much improved and pt anxious to return home. Pt declined rehab evaluation and HH referral. No cm interventions indicated.
== END 2019-11-12 14:22 | disposition home or self-care (01) | DRG 208 ==
LOC: ER 15:48 → ICU 18:43 → EROBS 18:43 → ICU 20:45 → 2N 11-11 05:55
PROVIDERS: Emergency Medicine; Hospitalist; Pediatrics; ADMIT Internal Medicine; ATTEND Internal Medicine
PROC: 5A1945Z Respiratory Ventilation, 24-96 Consecutive Hours (ICD-10-PCS; principal; 2019-11-08)
PROC: 05HY33Z Insertion of Infusion Device into Upper Vein, Percutaneous Approach (ICD-10-PCS; principal; 2019-11-08)
PROC: 0BH17EZ Insertion of Endotracheal Airway into Trachea, Via Natural or Artificial Opening (ICD-10-PCS; principal; 2019-11-08)
DX: J96.01 Acute respiratory failure with hypoxia (principal); J18.9 Pneumonia, unspecified organism; E46 Unspecified protein-calorie malnutrition; F31.9 Bipolar disorder, unspecified; J96.02 Acute respiratory failure with hypercapnia; F41.9 Anxiety disorder, unspecified; K21.9 Gastro-esophageal reflux disease without esophagitis; E87.6 Hypokalemia; Z20.828 Contact with and (suspected) exposure to other viral communicable diseases; G24.01 Drug induced subacute dyskinesia; Z68.21 Body mass index [BMI] 21.0-21.9, adult; Z79.899 Other long term (current) drug therapy; Z90.710 Acquired absence of both cervix and uterus
CPT/HCPCS: 10078; 10081

== ENCOUNTER 2020-01-06 17:28 | Inpatient (IN) | payer OTHER ==
[~2020-01-06] VITALS: Ht 172.7 cm; Wt 64.0 kg
[2020-01-06] VITALS (9 sets, daily range): BP systolic 107–162; BP diastolic 61–96
[~2020-01-06 17:28] MED LIST changes: +CEFDINIR300 MG PO; -OXYBUTYNIN 5 MG5 M2 PO; +OXYBUTYNIN ER 55 M2 PO; +REGLAN 5 MG TAB5 MG PO
[2020-01-06 18:09] LABS: ABSOLUTE NEUTROPHILS 4.2 thou/uL (1.4-8.2); BASOPHILS 1.5 % (0.0-2.0); EOSINOPHILS 0.8 % (0.0-3.0); HEMATOCRIT 40.2 % (37.0-47.0); HEMOGLOBIN 12.9 gm/dL (12.0-15.0); LYMPHOCYTES 27.9 % (24.0-44.0); MCH 30.2 pg (26.0-34.0); MCHC 32.2 g/dL (28.0-37.0); MCV 93.8 fL (80.0-100.0); MONOCYTES 4.6 % (1.0-8.0); PLATELET COUNT 343 thou/uL (150-400); POLYS 65.2 % (36.0-66.0); RBC 4.28 mil/uL (4.20-5.00); RDW 14.2 % (10.5-14.5); WBC 6.5 thou/uL (4.0-11.0)
[2020-01-06 18:14] LABS: CALCIUM 7.7 mg/dL (8.5-10.1); CREATININE 0.9 mg/dL (0.6-1.0); POTASSIUM 3.8 mmol/L (3.5-5.1)
[2020-01-06 18:20] LABS: ALBUMIN 3.5 g/dL (3.4-5.0); TOTAL BILIRUBIN 0.3 mg/dL (0.2-1.0); TOTAL PROTEIN 7.3 g/dL (6.4-8.2)
[2020-01-06 18:24] LABS: BE(vivo) -6.6 mmol/L (-2 to +3); HCO3 20.2 mmol/L (22.0-26.0); PO2 398.7 mmHg (80.0-100.0); sO2 99.8 % (92.0-98.0)
[2020-01-06 18:26] LABS: pH 7.269 (7.360-7.450)
--- NOTE | 2020-01-06 18:50 | NUR ---
Pt coughing on vent at this time and triggering alarms. As this promotion writer went in the room to see what ventilator alarm was being triggered and address possible causes, pt was witnessed to open her eyes and self-extubate with the ET balloon intact. Pt now awake, alert, responsive, and talking in clear and complete sentences. Pt reports no acute pain or discomfort, and stated that she could "breathe just fine on her own now."
[2020-01-06] MEDS ORDERED: OMEPRAZOLE40 MG PO (19:13)
[2020-01-06] MEDS ORDERED: PAROXETINE HCL30 MG PO (19:15)
[2020-01-06 20:10] LABS: ALBUMIN 3.7 g/dL (3.4-5.0); TOTAL PROTEIN 7.1 g/dL (6.4-8.2); TSH 3.138 uIU/mL (0.358-3.740)
[2020-01-06 22:35] LABS: BE(vivo) -3.4 mmol/L (-2 to +3); HCO3 21.1 mmol/L (22.0-26.0); PCO2 36.3 mmHg (35.0-45.0); PO2 73.6 mmHg (80.0-100.0); pH 7.383 (7.360-7.450); sO2 94.7 % (92.0-98.0)
--- NOTE | 2020-01-06 22:59 | NUR ---
ASSUMED CARE OF PATIENT FROM ER. ALL ADMISSION ASSESSMENTS COMPLETE, CARE PLAN INITIATED. DENIES PAIN. HAS NON PRODUCTIVE COUGH. REMAINS ON ROOM AIR, NPO. DO MENA CALLED, UPDATED ON PATIENT SELF EXTUBATING IN ER. ORDERS RECIEVED FOR CXR AND ABG'S. PATIENT RESTING COMFORTABLY IN BED. NO CONCERNS AT THIS TIME. WILL MONITOR AIRWAY CLOSELY.
[2020-01-07] VITALS (20 sets, daily range): BP systolic 118–148; BP diastolic 66–95
--- NOTE | 2020-01-07 07:50 | EKG ---
[facility] [place] [facility] [place] [address] ELECTROCARDIOGRAM REPORT Name: MICHELLE DE LA CRUZ Room #: 238-P ADM IN M.R.#: [id number] Admission: 01/06/20 Attend Phys: Domingo Montano MD Discharge: Date of : 51 Report #: [id number] THIS REPORT FOR: cc: Johnathon Chiang MD, Christopher B. MD Lundgren,Gio Anthony MD [facility] ~ THIS REPORT FOR: //name// [facility] ED Test Date: 2020-01-06 Test Time: 19:41:57 Pat Name: MICHELLE DE LA CRUZ Department: Room: 238 Gender: F Auto Tech: JAS : 1955 Requested By: Alexys Segura Order Number: [id number] MD: Gio Hannon Measurements Intervals [place] Rate: 87 P: 49 CA: 174 QRS: 53 QRSD: 97 T: 86 QT: 425 QTc: 512 Interpretive Statements Sinus rhythm Low voltage, extremity leads Prolonged QT interval Compared to ECG 11/08/2019 16:49:20 Sinus tachycardia no longer present Electronically Signed On 01-07-2020 7:50:23 CDT by Gio Hannon [email or web address] <ELECTRONICALLY SIGNED> By: Gio Hannon MD, [facility] 01/07/20 0750 40 40 Gio Hannon MD, [facility] /EPI
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
--- NOTE | 2020-01-07 16:38 | NUR ---
PT TRANSFERRED TO CCU VIA WHEELCHAIR ACCOMPANIED BY PANELBOARD ASSEMBLER. PT ALERT AND ORIENTED X4. PT ON ROOM AIR. PT STANDBY ASSIST X1 TO BEDSIDE COMMODE. ELDER IN PLACE. PT BELONGINGS WERE BROUGHT WITH PT. SKIN INTACT. CONTINUE TO MONITOR
[2020-01-08 04:00] VITALS: BP 153/99
[2020-01-08 04:51] LABS: HEMATOCRIT 38.4 % (37.0-47.0); HEMOGLOBIN 12.5 gm/dL (12.0-15.0); MCH 29.9 pg (26.0-34.0); MCHC 32.7 g/dL (28.0-37.0); MCV 91.5 fL (80.0-100.0); RBC 4.19 mil/uL (4.20-5.00); RDW 13.9 % (10.5-14.5); WBC 4.5 thou/uL (4.0-11.0)
[2020-01-08 04:52] LABS: CREATININE 0.6 mg/dL (0.6-1.0); POTASSIUM 3.5 mmol/L (3.5-5.1)
[2020-01-08 07:45] VITALS: BP 139/94
[2020-01-08 07:55] VITALS: BP 139/94
[2020-01-08] MEDS ORDERED: AUGMENTIN 875-1 EACH PO (09:39)
[2020-01-08 10:36] VITALS: BP 139/94
--- NOTE | 2020-01-08 12:04 | NUR ---
PT CARE ASSUMED AT 0700. ASSESSMENT CHARTED. MEDICATION CHARTED. REJ, RW AND AVTAR IV'S. SINUS RHYTHM. AO X 4. PT DENIES PAIN. SWALLOWING WELL. PT TO BE DISCHARGED HOME VIA CAB. TELEMETRY D/C'D. IV'S D/C'D PAPERWORK SIGNED.
== END 2020-01-08 11:32 | disposition home or self-care (01) | DRG 208 ==
LOC: ER 17:28 → ICU 19:28 → EROBS 19:28 → ICU 21:38 → 2N 01-07 16:03
PROVIDERS: Emergency Medicine; Internal Medicine Pulmonary Disease; ADMIT Internal Medicine; ATTEND Internal Medicine
PROC: 5A1935Z Respiratory Ventilation, Less than 24 Consecutive Hours (ICD-10-PCS; principal; 2020-01-06)
PROC: 0BH17EZ Insertion of Endotracheal Airway into Trachea, Via Natural or Artificial Opening (ICD-10-PCS; principal; 2020-01-06)
DX: J96.01 Acute respiratory failure with hypoxia (principal); J69.0 Pneumonitis due to inhalation of food and vomit; E87.2 Acidosis; F31.9 Bipolar disorder, unspecified; K08.409 Partial loss of teeth, unspecified cause, unspecified class; K21.9 Gastro-esophageal reflux disease without esophagitis; Z20.828 Contact with and (suspected) exposure to other viral communicable diseases; Z79.899 Other long term (current) drug therapy; Z90.710 Acquired absence of both cervix and uterus
CPT/HCPCS: 10078; 10797

== ENCOUNTER 2020-01-11 15:43 | Inpatient (IN) | payer OTHER ==
[~2020-01-11] VITALS: Ht 165.1 cm; Wt 58.6 kg
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
[~2020-01-11 15:43] MED LIST changes: +AUGMENTIN 875-1 EACH PO; +OMEPRAZOLE40 MG PO; +PAROXETINE HCL30 MG PO
[2020-01-11 16:02] LABS: ABSOLUTE NEUTROPHILS 9.3 thou/uL (1.4-8.2); BASOPHILS 0.9 % (0.0-2.0); EOSINOPHILS 0.4 % (0.0-3.0); HEMOGLOBIN 13.3 gm/dL (12.0-15.0); LYMPHOCYTES 28.5 % (24.0-44.0); MCH 30.5 pg (26.0-34.0); MCHC 32.4 g/dL (28.0-37.0); MCV 94.2 fL (80.0-100.0); PLATELET COUNT 347 thou/uL (150-400); POLYS 61.2 % (36.0-66.0); RBC 4.36 mil/uL (4.20-5.00); RDW 14.1 % (10.5-14.5); WBC 15.2 thou/uL (4.0-11.0)
[2020-01-11 16:12] LABS: BE(vivo) -6.8 mmol/L (-2 to +3); HCO3 22.4 mmol/L (22.0-26.0); PCO2 61.1 mmHg (35.0-45.0); PO2 282.9 mmHg (80.0-100.0); sO2 99.5 % (92.0-98.0)
[2020-01-11 16:13] LABS: pH 7.182 (7.360-7.450)
[2020-01-11 16:14] LABS: ANION GAP 15 mmol/L (7-16); BUN 5 mg/dL (7-18); CALCIUM 8.4 mg/dL (8.5-10.1); CHLORIDE 104 mmol/L (98-107); CO2 21 mmol/L (21-32); CREATININE 0.8 mg/dL (0.6-1.0); GLUCOSE 263 mg/dL (74-106); POTASSIUM 3.7 mmol/L (3.5-5.1); SODIUM 140 mmol/L (136-145)
[2020-01-11 16:18] LABS: TROPONIN-I <0.06 ng/mL (<0.06)
[2020-01-11 16:21] VITALS: BP 127/75
--- NOTE | 2020-01-11 16:51 | EKG ---
[facility] [place] [address] ELECTROCARDIOGRAM REPORT Name: MICHELLE DE LA CRUZ Room #: REG [facility]#: [id number] Admission: 01/11/20 Attend Phys: Discharge: Date of : 51 Report #: [id number] THIS REPORT FOR: cc: Johnathon Chiang MD, Christopher B. MD Santiago,Roly DAO [facility] ~ THIS REPORT FOR: //name// [facility] ED Test Date: 2020-01-11 Test Time: 16:25:16 Pat Name: MICHELLE DE LA CRUZ Department: Room: Gender: F Picture Copyist: [facility] : 1955 Requested By: Nicolas Coates Order Number: [id number] MD: Roly Davies Measurements Intervals [place] Rate: 89 P: 89 WY: 156 QRS: 202 QRSD: 94 T: 87 QT: 423 QTc: 515 Interpretive Statements Sinus rhythm Right axis deviation Abnormal R-wave progression, late transition Prolonged QT interval Compared to ECG 01/06/2020 19:41:57 Right-axis deviation now present Electronically Signed On 01-11-2020 16:51:15 CDT by Roly Davies [email or web address] <ELECTRONICALLY SIGNED> By: Roly Davies MD, [facility] 01/11/20 1651 1625 1625 Roly Davies MD, [facility] /EPI
[2020-01-11 17:20] LABS: BE(vivo) -2.8 mmol/L (-2 to +3); HCO3 20.8 mmol/L (22.0-26.0); PCO2 32.3 mmHg (35.0-45.0); PO2 352.8 mmHg (80.0-100.0); pH 7.426 (7.360-7.450); sO2 99.8 % (92.0-98.0)
--- NOTE | 2020-01-11 18:25 | NUR ---
GI LAB ARRIVES TO DO PROCEDURE ON PATIENT.
--- NOTE | 2020-01-11 19:01 | NUR ---
PROPOFOL INCREASED TO 40MCG/KG/MIN PER DR. DWYER WHO IS AT BEDSIDE
[2020-01-11 20:01] VITALS: BP 120/77
[2020-01-11 20:10] VITALS: BP 114/68
[2020-01-11 20:15] VITALS: BP 115/73
[2020-01-11 23:00] VITALS: BP 88/53
[2020-01-12] VITALS (23 sets, daily range): BP systolic 85–148; BP diastolic 42–84
[2020-01-13] VITALS (37 sets, daily range): BP systolic 74–149; BP diastolic 36–92
[2020-01-13 06:04] LABS: CALCIUM 8.2 mg/dL (8.5-10.1); CREATININE 0.6 mg/dL (0.6-1.0)
[2020-01-13 06:05] LABS: HEMATOCRIT 34.3 % (37.0-47.0); HEMOGLOBIN 11.4 gm/dL (12.0-15.0); MCH 30.6 pg (26.0-34.0); MCHC 33.3 g/dL (28.0-37.0); MCV 91.8 fL (80.0-100.0); RBC 3.74 mil/uL (4.20-5.00); RDW 14.1 % (10.5-14.5)
[2020-01-13 06:07] LABS: POTASSIUM 2.5 mmol/L (3.5-5.1)
--- NOTE | 2020-01-13 08:20 | NUR ---
EXTREMELY ANXIOUS EARLIER-SITTING UP & FORWARD IN BED,TRYING TO REACH ETT. WAITING ON PRECEDEX (JUST STARTED)& WILL DEC PROPOFOL, ATTEMPT CPAP TRIAL. TF OFF,OGT FLUSHED & CLAMPED IN PREP OF CPAP TRIAL,HOPEFULLY EXTUBATE.--VW
[2020-01-13 12:53] LABS: BE(vivo) -3.6 mmol/L (-2 to +3); PO2 109.9 mmHg (80.0-100.0); pH 7.338 (7.360-7.450); sO2 97.8 % (92.0-98.0)
--- NOTE | 2020-01-13 14:16 | NUR ---
chart review. pt was just here week ago for some thing choking on food. unable to visit with uzma burton on vent. cm spoke with her ex lionel that she lives with. house with danielle rt lionel wheel chair bound. she independent but has refused to get trach or peg in the past. this is not the 1st time she choked. she did not tell me she was on soft diet and ate pizza. if i can talk with her encourage her to get the feeding tube. thank for calling per lionel.
[2020-01-14] VITALS (16 sets, daily range): BP systolic 118–142; BP diastolic 60–78
--- NOTE | 2020-01-14 05:42 | NUR ---
This RN to bedside at 1900. Pt was extubated on 01/12 around 1730. During this RNs' first assessment pt was on room air satting at 95%. Pt resting and was able to answer all of my orientation questions. Pt very forgetful and drowsy. Around 0000, this RN put pt on nasal cannula because patient was satting steady at 88%. Pt now reduced to 2L NC and satting at 95%. VSS, adequate urine output.
[2020-01-14 06:55] LABS: CALCIUM 7.7 mg/dL (8.5-10.1); CREATININE 0.4 mg/dL (0.6-1.0)
[2020-01-14 07:59] LABS: HEMATOCRIT 34.5 % (37.0-47.0); HEMOGLOBIN 11.4 gm/dL (12.0-15.0); MCH 30.3 pg (26.0-34.0); MCV 91.7 fL (80.0-100.0); RBC 3.76 mil/uL (4.20-5.00); RDW 13.8 % (10.5-14.5); WBC 5.8 thou/uL (4.0-11.0)
--- NOTE | 2020-01-14 09:22 | NUR ---
chart review. pt was extubated yesterday. pt going for barium swallow today and then will see what diet is going to be.
--- NOTE | 2020-01-14 15:43 | NUR ---
Patient awake and alert all day. Patient able to participate in plan of care and discharge planning. GI in to talk with patient and ordered Baruium Swallow eval. Patient taken down in wheelchair. Pt able to stand and bear own weight to transfer to wheelchair from bed. Able to stand for the test down in radiology. Good strength and endurance. Adequate oxygenation on room air. Heart rate and rhythm stable. Remains afebrile. Patient was NPO until GI came and reveiwed the results of the test with her. Orders for strictly pureed diet, thin liquids. Crush pills in applesauce. dietitian came and spoke with the patient regarding diet once patient is back home. Patient verbalized understanding. Wayne remains inplace. IVF remian at 125ml/hr. May reassess tomorrow as oral intake increases. Good u/o at this time. Awaiting open bed as patient may transfer to med/surg tele.
--- NOTE | 2020-01-14 18:32 | NUR ---
Pt transfered up to 4th floor via wheelchair room 450. patient ate 100% of her pureed dinner without diffiulty.
--- NOTE | 2020-01-14 19:13 | NUR ---
Patient got to the floor around 6:25pm, denied n/v, denied pain. asked for orange juice. patient coughed frequently, voicing that it was drying coughing. the staff passed on the concern of her coughing to the night nurse: the coughing might be caused by food aspiration, the night nurse agreed to closely monitoring the patient.
[2020-01-15 00:51] VITALS: BP 146/69
[2020-01-15 04:38] VITALS: BP 144/85
[2020-01-15 05:59] LABS: CALCIUM 8.4 mg/dL (8.5-10.1); CREATININE 0.5 mg/dL (0.6-1.0)
[2020-01-15 06:10] LABS: HEMATOCRIT 36.1 % (37.0-47.0); HEMOGLOBIN 12.1 gm/dL (12.0-15.0); MCH 30.7 pg (26.0-34.0); MCHC 33.5 g/dL (28.0-37.0); MCV 91.5 fL (80.0-100.0); RBC 3.95 mil/uL (4.20-5.00); RDW 13.4 % (10.5-14.5); WBC 5.5 thou/uL (4.0-11.0)
[2020-01-15 07:29] VITALS: BP 149/89
[2020-01-15] MEDS ORDERED: AUGMENTIN 875-1 EACH PO (13:28)
[2020-01-15] MEDS ORDERED: PROAIR HFA8.5 GM INH (13:29)
[2020-01-15 13:38] VITALS: BP 149/89
--- NOTE | 2020-01-15 13:44 | NUR ---
PT CARE ASSUMED AT 0700. A&Ox. PT ON ELECTROLYTE PROTOCOL. PT ANXIES TO BE DISCHARGED. PT LUNGS DIMINISHES AND COARSE. CONTINUES TO HAVE A COUGH. BM YESTERDAY. EDUCATED ON EXTUBATION COUGH AND IMPORTANCE OF BEING ON A PUREED DIET. PT DISCHARGED WITH NO FURTHER QUESTIONS TO . IV REMOVED. FALL PROTOCOL IN PLACE. CALL LIGHT IN REACH. WILL CONTINUE TO MONITOR.
[2020-01-15 13:50] VITALS: BP 149/89
== END 2020-01-15 13:55 | disposition home or self-care (01) | DRG 208 ==
LOC: ER 15:43 → EROBS 17:52 → ICU 17:52 → 4W 01-14 18:05
PROVIDERS: Emergency Medicine; Hospitalist; Nurse Practitioner; Pediatrics; ADMIT Hospitalist; ATTEND Hospitalist
PROC: 0BH18EZ Insertion of Endotracheal Airway into Trachea, Via Natural or Artificial Opening Endoscopic (ICD-10-PCS; principal; 2020-01-11)
PROC: 5A1945Z Respiratory Ventilation, 24-96 Consecutive Hours (ICD-10-PCS; principal; 2020-01-11)
PROC: 0DH68UZ Insertion of Feeding Device into Stomach, Via Natural or Artificial Opening Endoscopic (ICD-10-PCS; principal; 2020-01-11)
PROC: 5A09357 Assistance with Respiratory Ventilation, Less than 24 Consecutive Hours, Continuous Positive Airway Pressure (ICD-10-PCS; 2020-01-12)
DX: J96.01 Acute respiratory failure with hypoxia (principal); J69.0 Pneumonitis due to inhalation of food and vomit; F31.9 Bipolar disorder, unspecified; F41.9 Anxiety disorder, unspecified; K21.9 Gastro-esophageal reflux disease without esophagitis; J96.02 Acute respiratory failure with hypercapnia; R13.10 Dysphagia, unspecified; K22.8 Other specified diseases of esophagus; G24.01 Drug induced subacute dyskinesia; Z90.710 Acquired absence of both cervix and uterus; Z79.899 Other long term (current) drug therapy
CPT/HCPCS: 10040; 10078

== ENCOUNTER 2020-02-04 16:27 | Inpatient (IN) | payer OTHER ==
[~2020-02-04] VITALS: Ht 162.6 cm; Wt 70.0 kg
--- NOTE | ~2020-02-04 | HC ---
[facility] [place] [address] CONSULTATION Name: MICHELLE DE LA CRUZ Room #: 202-P [facility] IN M.R.#: [id number] Admission: 02/04/20 Attend Phys: Blanca Sotelo MD Discharge: 02/14/20 Date of : 51 Report #: [id number] THIS REPORT FOR: cc: Johnathon Chiang MD, Christopher B. MD Khosla,Ty Estevez MD ~ DATE OF SERVICE: 02/14/2020 HISTORY OF PRESENT ILLNESS: This is a 64-year-old female patient who was evaluated by me for intracerebral hemorrhage. I talked to Dr. Braden in detail about this patient and subsequently talked to the pillowcase sewer. Both of them informed me that this patient had been accepted at [facility] for transfer. Before that acceptance they have basically called every hospital in the town because no Neurosurgery coverage is available and they were unable to find a bed for her because all the hospitals were full. REVIEW OF SYSTEMS: Indicate that this patient has been in the hospital for some time. She had respiratory arrest as per Emergency Room note. She has pretty significant GI problem as per surgeon's note. She had a CT scan of the head on admission that film was reviewed and subsequently she had a CT scan of the head now. Talking to Dr. Braden, it would appear repeat CT scan was done because the patient was not basically waking up. The patient was also discussed with the nurses. Talking to Dr. Braden, it will also indicate that this patient had multiple intubations recently. The patient had a bipolar disorder. She has a history of depression and anxiety. She has tardive dyskinesia. She had an esophagectomy and gastric pull-up. A 14-point review of systems is positive for numerous medical problems in this patient. PAST MEDICAL HISTORY: Foot surgery. SOCIAL HISTORY: Again from the record. There is no documentation in this patient that the patient had alcohol abuse, drug abuse, but is unknown. PHYSICAL EXAMINATION: Pretty limited. She opens her eyes. She does not move anything for me. It is very difficult to do rest of the neurological examination in this patient. Vital signs indicated blood pressure 158/68, pulse is 72 and temperature is 99.4. Her temperature has been higher before. LABORATORY DATA: Indicate a white count of 8.2. GFR is only 30. Blood sugar is 368. CT scan showed a large hemorrhage, but left occipital lobe, also looked abnormal. IMPRESSION: I discussed the situation with Dr. Braden. I discussed with him that the aim should be to keep her blood pressure less than 140. It is my impression [address] [address] CONSULTATION Name: MICHELLE DE LA CRUZ Room #: 202-P [facility] IN M.R.#: [id number] Admission: 02/04/20 Attend Phys: Blanca Sotelo MD Discharge: 02/14/20 Date of : 51 Report #: [id number] that does not matter what we do the prognosis is bad in this patient. It will be very desirable to have some family member or durable power of state's attorney to see whether we can make her palliative care or comfort care of this kind of quality of the life and this kind of CT. The situation is complicated as I understand from Dr. Braden and in any event, the patient is going to be transferred to [facility] as per Dr. Braden as well as my discussion with pillowcase sewer. Further management will be deferred to them, but this prognosis in this patient is extremely poor. About 50 minutes of time was spent taking care of this patient today and majority was spent counseling, coordinating and reviewing the record and reviewing the patient's imaging studies and discussing with multiple health palliative care specialist. Thank you very much for this referral. By: 1730 2316 Ty Bruce MD /nt
[~2020-02-04 16:27] MED LIST changes: +PROAIR HFA8.5 GM INH
[2020-02-04 17:12] LABS: ANION GAP 15 mmol/L (7-16); BUN 13 mg/dL (7-18); CHLORIDE 106 mmol/L (98-107); CO2 24 mmol/L (21-32); CREATININE 1.1 mg/dL (0.6-1.0); GLUCOSE 297 mg/dL (74-106); POTASSIUM 4.2 mmol/L (3.5-5.1); SODIUM 145 mmol/L (136-145)
[2020-02-04 17:13] LABS: ABSOLUTE NEUTROPHILS 4.4 thou/uL (1.4-8.2); BASOPHILS 0.9 % (0.0-2.0); EOSINOPHILS 1.4 % (0.0-3.0); HEMATOCRIT 41.5 % (37.0-47.0); HEMOGLOBIN 12.6 gm/dL (12.0-15.0); LYMPHOCYTES 45.8 % (24.0-44.0); MCH 29.6 pg (26.0-34.0); MCHC 30.5 g/dL (28.0-37.0); MONOCYTES 9.1 % (1.0-8.0); PLATELET COUNT 413 thou/uL (150-400); POLYS 42.8 % (36.0-66.0); RBC 4.27 mil/uL (4.20-5.00); RDW 14.9 % (10.5-14.5); WBC 10.2 thou/uL (4.0-11.0)
[2020-02-04 17:18] LABS: ALBUMIN 3.5 g/dL (3.4-5.0); DIRECT BILIRUBIN < 0.1 mg/dL (<0.1-0.2); SGOT 29 U/L (15-37); SGPT 15 U/L (30-65); TOTAL BILIRUBIN 0.3 mg/dL (0.2-1.0); TOTAL PROTEIN 7.4 g/dL (6.4-8.2)
[2020-02-04 18:00] LABS: BE(vivo) -6.3 mmol/L (-2 to +3); HCO3 19.9 mmol/L (22.0-26.0); PCO2 41.8 mmHg (35.0-45.0); PO2 287.8 mmHg (80.0-100.0); pH 7.295 (7.360-7.450); sO2 99.6 % (92.0-98.0)
[2020-02-04 21:16] VITALS: BP 104/57
[2020-02-04 23:41] LABS: HCO3 21.9 mmol/L (22.0-26.0); PCO2 43.6 mmHg (35.0-45.0); PO2 132.2 mmHg (80.0-100.0); sO2 98.4 % (92.0-98.0)
[2020-02-04 23:42] LABS: pH 7.319 (7.360-7.450)
[2020-02-05] VITALS (27 sets, daily range): BP systolic 71–126; BP diastolic 35–60
[2020-02-05 04:54] LABS: CALCIUM 8.4 mg/dL (8.5-10.1); CREATININE 0.6 mg/dL (0.6-1.0); MAGNESIUM 2.3 mg/dL (1.8-2.4); POTASSIUM 4.2 mmol/L (3.5-5.1)
[2020-02-05 05:08] LABS: HEMATOCRIT 33.5 % (37.0-47.0); HEMOGLOBIN 10.8 gm/dL (12.0-15.0); MCHC 32.2 g/dL (28.0-37.0); MCV 93.2 fL (80.0-100.0); RBC 3.6 mil/uL (4.20-5.00); WBC 5.1 thou/uL (4.0-11.0)
--- NOTE | 2020-02-05 05:36 | NUR ---
PT TRANPORTED FROM ED IN [facility] WITH PROPOFOL DRIP AND ON VENT WITH RT AT BEDSIDE. PT IS IMPULSIVE AND HX OF EXTUBATING HERSELF. PT IS ON NON-VIOLENT RESTRAINTS FOR SAFETY. ASSESSMENT CHARTED. ALL CONSULTS CALLED AND NOTIFIED. PT PERIODICALLY SITS UP IN BED AND REACHES FOR ET TUBE DESPITE SEDATION MEDICATIONS. PLANS ARE FOR SURGICAL INTERVENTION WITH PEG PLACEMENT. CONITNUE WITH PLAN OF CARE
--- NOTE | 2020-02-05 17:45 | NUR ---
Patient continues on vent, sedated with Propofol, Fentanyl, and Versed. See med titration intervention for details. Patient continues moderately sedated, opening eyes to name/stim, moves all ext. with purpose. Bilateral wrist restraints in place. All documentation current as well as order for restraints. Heart rate and rhythm stable. Blood pressure soft, affected by sedation. Maintaining adequtate oxygenation on current vent settings, tolerating well. Adequate u/o. Orders noted. Attempted to call back after he left a message. No answer. I left him a message to call back and he did not. 2nd Covid test sent per Dr. Dubois. Orders to D/C isolation if test comes back negative. See documentation on interventions for assessment details. Pt is just beginning plan of care. Will continue to monitor.
--- NOTE | 2020-02-05 20:00 | NUR ---
# 2 COVID 19 TEST IS NEGATIVE. WILL REMOVE ENHANSED PRECAUTIONS AND TAKE OUT OF ISOLATION.
[2020-02-06] VITALS (23 sets, daily range): BP systolic 88–158; BP diastolic 39–75
[2020-02-06 00:31] LABS: GLYCOHEMOGLOBIN (HGB A1C) 5.5 % (4.8-5.6)
--- NOTE | 2020-02-06 06:00 | NUR ---
REMAINS INTUBATED AND SEDATED. PROPOFOL VERSED AND FENTANYL GTTS SINUS RHYTHM. 1000 CC UO THIS SHIFT. WILL CONT TO MONITOR
--- NOTE | 2020-02-06 10:12 | HC ---
[facility] [place] [address] CONSULTATION Name: MICHELLE DE LA CRUZ Room #: 240-P ADM IN M.R.#: [id number] Admission: 02/04/20 Attend Phys: Shanti Hale MD Discharge: Date of : 51 Report #: [id number] THIS REPORT FOR: cc: Johnathon Chiang MD, Christopher B. MD Brown, Randal L. MD ~ GASTROENTEROLOGY CONSULTATION HISTORY OF PRESENT ILLNESS: The patient is a very pleasant 64-year-old female, who has had a very extensive recent medical history, which includes that are listed in the chart. Briefly, she is known to us extensively. She has a history of achalasia, for which she received a partial esophagectomy with gastric pull-up and has had recurrent bouts of aspiration, requiring hospitalization with severe hypoxemia. She had an upper endoscopy done earlier this month, which revealed retained food in the esophagus, esophageal remnant in the gastric portion of the gastric pull-up and clear anatomy into the small bowel. She had readmitted with aspiration in this hospitalization, but has a CT, which reveals a distended stomach in the mediastinum, status post esophageal resection and the stomach is markedly filled with debris in the mediastinum and dilated all the way to the thoracic inlet. There is an NG tube extending into the distal stomach. PAST MEDICAL HISTORY: Well-detailed in the chart, but includes bipolar disorder, gastroesophageal reflux, depression, anxiety, tardive dyskinesia and then her prior surgical history as stated above. She has also had bilateral foot tendon surgery, wisdom tooth extraction, bilateral carpal tunnel release, oral surgery. SOCIAL HISTORY: No significant alcohol or tobacco consumption. FAMILY HISTORY: Not available. REVIEW OF SYSTEMS: Not available. PHYSICAL EXAMINATION: GENERAL: The patient is afebrile. VITAL SIGNS: Stable, currently. HEENT: Nonicteric. NECK: No significant abnormality. HEART: Not auscultated. LUNGS: Not auscultated. ABDOMEN: Soft, nondistended. EXTREMITIES: Revealed no significant abnormality. NEUROLOGIC: Not performed. [facility] [address] [place] [address] CONSULTATION Name: MICHELLE DE LA CRUZ Room #: [address] [place] [address] IN M.R.#: [id number] Admission: 02/04/20 Attend Phys: Shanti Hale MD Discharge: Date of : 51 Report #: [id number] PERTINENT LABORATORY DATA: On presentation, hemoglobin 12.6, platelet count 413. COVID negative x1. Blood gas was reviewed. Chemistry is notable for glucose 72. Normal liver tests. IMAGING: As above. ASSESSMENT AND PLAN: In summary, the patient has significant recurrent aspiration. There is apparent partial obstruction at the thoracic inlet, which could explain this dilated stomach and extensive amount of food material there. This puts her at higher risk for recurrent aspiration. At this point, I agree with nasogastric suctioning. 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 This was dated 01/13. There has been a long discussion regarding surgical options, as well as feeding options. Of course, if there is obvious evidence of obstruction at the thoracic inlet, a surgical option would be essential. Endoscopically, evaluation is high risk; however, this could be done electively with the patient intubated. Another option would be repeating a barium study to see if this corresponds with the area of the thoracic inlet stenosis. We will monitor. At this point, evaluation of this area of narrowing or stricture is a priority and we will proceed with the best way to manage once the patient is stable from a pulmonary standpoint. Thanks for allowing us to participate in the care of this nice woman. <ELECTRONICALLY SIGNED> By: Zach Musa MD 02/06/20 1012 1221 1240 Zach Musa MD /nt
[2020-02-06 10:16] LABS: ABSOLUTE NEUTROPHILS 3.5 thou/uL (1.4-8.2); BASOPHILS 0.6 % (0.0-2.0); EOSINOPHILS 1.9 % (0.0-3.0); HEMATOCRIT 39.1 % (37.0-47.0); HEMOGLOBIN 12.5 gm/dL (12.0-15.0); LYMPHOCYTES 18.9 % (24.0-44.0); MCH 29.6 pg (26.0-34.0); MCHC 31.9 g/dL (28.0-37.0); MCV 92.9 fL (80.0-100.0); PLATELET COUNT 241 thou/uL (150-400); POLYS 68.6 % (36.0-66.0); RBC 4.21 mil/uL (4.20-5.00); WBC 5.1 thou/uL (4.0-11.0)
[2020-02-06 10:25] LABS: CALCIUM 8.4 mg/dL (8.5-10.1); CREATININE 0.6 mg/dL (0.6-1.0); MAGNESIUM 1.9 mg/dL (1.8-2.4); PHOSPHORUS 3.5 mg/dL (2.5-4.9); POTASSIUM 4.4 mmol/L (3.5-5.1)
[2020-02-06 11:30] LABS: BE(vivo) -3.5 mmol/L (-2 to +3); HCO3 23.4 mmol/L (22.0-26.0); PCO2 49.9 mmHg (35.0-45.0); PO2 111.9 mmHg (80.0-100.0); pH 7.289 (7.360-7.450); sO2 97.6 % (92.0-98.0)
--- NOTE | 2020-02-06 11:38 | NUR ---
Patient sedation decreased, Versed off, Propofol at 10 mcgs and Fentanyl at 25 mcgs. Patient wakes on own, follows commands, lifts self off pillow. 1055- Patient placed on CPAP. Patient seems to tolerate well. O2 sats high 90's. RR teens, even/nonlabored. 1125- ABG done. Critical resutls. Placed back on previous vent settings. Sedation turned back on to promote compfort while on vent.
--- NOTE | 2020-02-06 17:21 | NUR ---
Patient has been stable throughout the day. Since failed CPAP trial, patient has been back on vent settings, tolerating well, and sedated. Patient's temp has increased throughout the day. Tmax 100.0 most recent at 1600. Patient lungs still sound essentially clear with minimal ETT secretions. Heart rate and rhythm stable. Blood pressure stable and dependant on amount of sedation. Large u/o noted. Blood sugars stable without the need for insulin. No phone call from family today. Patient is continuing with plan of care. See documentation in interventions for assessment details.
[2020-02-07] VITALS (66 sets, daily range): BP systolic 70–158; BP diastolic 33–93
[2020-02-07 04:45] LABS: ABSOLUTE NEUTROPHILS 2.7 thou/uL (1.4-8.2); BASOPHILS 0.8 % (0.0-2.0); EOSINOPHILS 2.4 % (0.0-3.0); HEMATOCRIT 37.2 % (37.0-47.0); HEMOGLOBIN 11.8 gm/dL (12.0-15.0); LYMPHOCYTES 23.4 % (24.0-44.0); MCH 29.8 pg (26.0-34.0); MCHC 31.8 g/dL (28.0-37.0); MCV 93.7 fL (80.0-100.0); MONOCYTES 11.3 % (1.0-8.0); PLATELET COUNT 217 thou/uL (150-400); POLYS 62.1 % (36.0-66.0); RBC 3.97 mil/uL (4.20-5.00); RDW 14.1 % (10.5-14.5); WBC 4.4 thou/uL (4.0-11.0)
[2020-02-07 04:54] LABS: ALBUMIN 2.3 g/dL (3.4-5.0); CALCIUM 8.3 mg/dL (8.5-10.1); CREATININE 0.6 mg/dL (0.6-1.0); MAGNESIUM 1.7 mg/dL (1.8-2.4); PHOSPHORUS 3.4 mg/dL (2.5-4.9); POTASSIUM 4.2 mmol/L (3.5-5.1); TOTAL BILIRUBIN 0.4 mg/dL (0.2-1.0); TOTAL PROTEIN 5.4 g/dL (6.4-8.2)
--- NOTE | 2020-02-07 06:00 | NUR ---
REMAINS INTUBATED AND SEDATED WITH PROP 20 MCG VERSED 3 MG AND FENTANYL 50 MCG O2 SAT 100 % ON 40 % FIO2 LUNGS ESS CLEAR. 1500 CC UO THIS SHIFT BATHED REPOSITIONED Q 2 HRS. SINUS RHYTHM. WILL CONT TO MONITOR,
--- NOTE | 2020-02-07 10:49 | NUR ---
Nutrition: If unable to extubate today, REC Jevity 1.5 at 45 mL/hr goal rate.
--- NOTE | 2020-02-07 11:41 | NUR ---
ASSUMED CARE @ 0700 , PT ASSESSMENTS AND VSS COMPLETE PER ICU PRT. DR RASMUSSEN @ BEDSIDE @ 0725, NEW ORDERS RECIEVED AND EXECUTED. PT STARTED ON PRECEDEX DRIP AND SO PROPOFOL, FENTANYL AND VERSED TITRATED OFF @ 0900, CPAP TRIAL @ 1045- 1110, PT STARTS TO CEASE BREATHING, APNEA STARTS TO SOUND ON THE VENTILATOR, PT SWITCHED BACK TO A/C. @1115, LISY RN @ BEDSIDE PLACING PICC IN THE RIGHT UPPER ARM. MICHELLE GODOY LAMINATING MACHINE OFFBEARER @ BEDSIDE @ [address] RODRIGUEZ GI @ BEDSIDE @ 1153, ORDERS RECIEVED. @ 0813 JULIANNE (EX-) CALLED FOR AN UPDATE. WILL CONT TO MONITOR.
[2020-02-07 12:24] LABS: BE(vivo) -1.5 mmol/L (-2 to +3); HCO3 24.9 mmol/L (22.0-26.0); PCO2 49.6 mmHg (35.0-45.0); PO2 113.2 mmHg (80.0-100.0); sO2 97.8 % (92.0-98.0)
[2020-02-07 12:26] LABS: pH 7.319 (7.360-7.450)
--- NOTE | 2020-02-07 12:47 | NUR ---
VAT CONSULTED FOR A PICC FOR THIS PT ON THE VENT IN THE ICU. A 5FRTLPICC PLACED AND RELEASED TO THE RN FOR USE PLEASE SEE NI FOR DETAILS
--- NOTE | 2020-02-07 13:24 | NUR ---
chart review. she had multiple admit for same, in last month. unable to visit with her rt she remains intubated, GI consulted. cm tried to reach lionel and number out of service [phone]. she lives with lionel her ex-. ramp up to house rt ex is in wheel chair. 12 steps to basement. will cont following as needed for dc needs.
--- NOTE | 2020-02-07 21:41 | NUR ---
>>>Bedside shift report received, care assumed. >>>0810 Assessments done as documented, pt is restless trying to pull lines and tubes. Restraints intact. Preced started at 0.3mcg/kg/hr. No sedation vacation done at this time. Will continue top monitor.
[2020-02-08] VITALS (95 sets, daily range): BP systolic 73–162; BP diastolic 31–85
--- NOTE | 2020-02-08 09:01 | NUR ---
Pt TO BE PLACED ON HOLD AND AWAIT NEW ORDERS TO INITIATE PT INTERVENTIONS Pt HAS BEEN ON VENTILATOR FOR MULTIPLE DAYS WHEN CHECKED ON BY PT. WILL AWAIT NEW PT ORDERS.
--- NOTE | 2020-02-08 09:33 | NUR ---
Nutrition: Plan NJ tube placement today. Due to feeding through small bowel REC elemental formula Vital AF to reach 55 mL/hr.
[2020-02-08 11:35] LABS: HEMATOCRIT 33.4 % (37.0-47.0); HEMOGLOBIN 11.1 gm/dL (12.0-15.0); MCH 29.9 pg (26.0-34.0); MCHC 33.1 g/dL (28.0-37.0); MCV 90.4 fL (80.0-100.0); RBC 3.7 mil/uL (4.20-5.00); RDW 13.5 % (10.5-14.5); WBC 4.8 thou/uL (4.0-11.0)
--- NOTE | 2020-02-08 12:08 | NUR ---
Pt HAS BEEN ON VENTILATOR FOR SEVERAL DAYS. THEREFORE, O.T. EVALUATION ON HOLD UNTIL NEW ORDERS ARE RECEIVED WHEN/IF APPROPRIATE TO ATTEMPT EVALUATION.
--- NOTE | 2020-02-08 16:23 | NUR ---
cm visited with hospitalist rt pt recent hospital visits. hospitalist going to speak with other physicians rt plan of care.
--- NOTE | 2020-02-08 18:05 | NUR ---
RN NOTICES THAT THE -VANIA SEEMS OCCLUDED, RN TRIES TO TROUBLESHOOT BY FLUSHING, RN NOTICES PRESSURE, RN STOPS AND PAGES DR RODRIGUEZ ABOUT INCIDENT, DR RODRIGUEZ INSTRUCTED RN TO LEAVE -VANIA IN PLACE AND THAT IT WILL BE ADDRESSED TOMORROW.
[2020-02-09] VITALS (119 sets, daily range): BP systolic 77–176; BP diastolic 32–141
[2020-02-09 16:21] LABS: HCO3 18.9 mmol/L (22.0-26.0); PCO2 39.5 mmHg (35.0-45.0); PO2 128.9 mmHg (80.0-100.0); sO2 98.3 % (92.0-98.0)
[2020-02-09 16:22] LABS: pH 7.298 (7.360-7.450)
--- NOTE | 2020-02-09 17:20 | NUR ---
REPORTED CRITICAL RESULT TO DR RASMUSSEN AFTER 1HR CPAP. ORDERS TO EXTUBATE AND PLACE ON BIPAP. PATIENT EXTUBATED AT 1705 40% AVAPS SETTINGS, VT 450 SETTINGS. 1AMP BICARB GIVEN. BEFORE EXTUBATION ATILIO NEW CLARIFIED WTIH DR RASMUSSEN ABOUT PATIENT NOT FOLLOWING COMMANDS BUT IS MOVING SPONTANEOUSLY AND ATTEMPTING TO SIT UP IN BED. TODAY PATIENT HAD EGD PROCEDRURE AT [address] RODRIGUEZ MANIPULATED KINKED DOBHOFF TUBE. KUB CONFIRMED PLACEMENT AND TUBE FEEDS INITIATED AT 1615 VITAL AF BEGINNING AT 10ML/HR. GOAL RATE IS 55ML/HR. PATIENT OUT OF RESTRAINTS AT 1710.
--- NOTE | 2020-02-09 18:53 | NUR ---
PATIENT TRANSFERS TO ROOM 244 AT 1845
[2020-02-10] VITALS (46 sets, daily range): BP systolic 113–188; BP diastolic 54–98
--- NOTE | 2020-02-10 06:30 | NUR ---
PATIENT REMAINS ON BIPAP. CONFUSED. AGITATED AT TIMES. MEDS GIVEN ORDERED. AFEBRILE. VSS. TUBE FEEDS IN PLACE. TOLERATING IT WELL. ELDER WITH GOOD U/O. NO BM THIS TOD. WILL MONITOR AND GIVE REPORT TO ONCOMING RN.
[2020-02-10 11:02] LABS: BE(vivo) -1.2 mmol/L (-2 to +3); PCO2 36.8 mmHg (35.0-45.0); pH 7.413 (7.360-7.450); sO2 95.5 % (92.0-98.0)
--- NOTE | 2020-02-10 13:38 | NUR ---
0710-ASSUMMED CARE OF PT.--VW 0830-D/W PT'S EXTREME SOMNOLENCE,PRACTICALLY UNRESPONSIVE.PLAN TO D/C ALL SEDATION,SEE IF PT WAKES UP.--VW 0930- IN. ALSO D/W HIM EXTREMEME SOMNOLENCE.--VW IN ~0745-STATED HE WAS GOING TO TOUCH BASE W DR. IRA WATKINS OF [facility] (DID ORIGINAL SURGERY) & SEE IF POSSIBILITY OF TRANSFER IF ACCEPTED & BED AVAILABLE.--VW
[2020-02-11] VITALS (20 sets, daily range): BP systolic 140–180; BP diastolic 72–133
[2020-02-11 05:01] LABS: HEMATOCRIT 31.5 % (37.0-47.0); HEMOGLOBIN 10.5 gm/dL (12.0-15.0); MCH 30.2 pg (26.0-34.0); MCHC 33.5 g/dL (28.0-37.0); RBC 3.5 mil/uL (4.20-5.00); RDW 13.7 % (10.5-14.5); WBC 4.6 thou/uL (4.0-11.0)
[2020-02-11 05:04] LABS: CALCIUM 8.7 mg/dL (8.5-10.1); CREATININE 2.2 mg/dL (0.6-1.0); MAGNESIUM 1.8 mg/dL (1.8-2.4); POTASSIUM 3.8 mmol/L (3.5-5.1)
--- NOTE | 2020-02-11 08:06 | NUR ---
PER REPORT FROM NIGHT RN AND CHARTING, DOBHOFF SUPPOSED TO BE AT 73 CM. DOBHOFF ON ASSESSMENT ONLY AT 53 CM. STAT KUB ORDERED PER PROTOCOL AND TUBE FEED STOPPED
--- NOTE | 2020-02-11 08:38 | NUR ---
PT TAKEN OFF BIPAP AND PLACED ON 4L NC PER DR RASMUSSEN REQUEST AT 0759. PT TOLERATING WELL, 100% ON THE 4L, DECREASED AT 0835 TO 2L NC. PT BEGINNING TO WAKE UP MORE, CALLING OUT FOR BANG/EHSAN, WHEN ASKED WHO THAT IS SHE SAYS HER DOG, PT WILL NOT OPEN EYES OR FOLLOW COMMANDS, SHE IS THRASHING ABOUT IN BED. ORAL CARE WAS DONE.
--- NOTE | 2020-02-11 09:47 | NUR ---
dobhoff in good position per kub, new position is 53 cm, charted as such
--- NOTE | 2020-02-11 12:14 | NUR ---
chart review. possible will transfer out of icu today. has agusto and suppose to be having kub. oxygen per nc. waiting for MD to assist with the need for transfer, or if still needed. will cont following as needed for dc needs.
--- NOTE | 2020-02-11 15:25 | NUR ---
PT TRANSFERRED TO ROOM 202, ALL BELONGINGS SENT WITH PT
--- NOTE | 2020-02-11 15:59 | NUR ---
PATIENT TRANSFERRED TO ROOM 202 FROM ICU HAS HAND RESTRAINTS IN PLACE. IV FLUIDS INFUSING ORDERED. HAS DOBHOFF TO LEFT NARE THAT VITAL AF INFUSING AT 55/HR ORDERED. V.S 98.6 20 92 177/101 CALL TO DOCTOR AND NCP ORDER FOR PRN B/P MED RECIEVED. AND GIVEN IV PUSH. TELE MONITOR ON PATIENT AND RECORDING. O2 2L/NC. PT IS RESTING BUT EASILY AWAKENED NO INCREASED ANXIETY OR NON COMPLIANCE. NO S/S PAIN OR RESP DISTRESS. ELDER CATH WITH CLEAR YELLOW URINE IN ELDER BAG.
--- NOTE | 2020-02-11 19:24 | NUR ---
PATIENT WAS GIVEN METOPRAOLOL 5 MG IV PUSH AND AT 1800 B/P WAS 159/82.
[2020-02-12 00:05] VITALS: BP 133/78
[2020-02-12 04:00] VITALS: BP 171/89
[2020-02-12 06:31] VITALS: BP 161/76
--- NOTE | 2020-02-12 06:31 | NUR ---
SLEPT MOST OF SHIFT. DOES NOT OPEN EYES, MOVES AROUND IN BED AT TIMES. PULLS ARMS UP AGAINST RESTRAINTS. REPOSITIONED EVERY 2-3 HOURS. INCONTINENT OF LOOSE STOOLS X2. TOLERATING TUBE FEEDING. WORKING ON GOALS AND PLAN OF CARE THROUGHTOUT NOC. SUCTION ORAL AND MOUTH CARE PRN. WILL ANSWER QUESTIONS AT TIMES. CONTINUE TO ASSES CLOSELY.
[2020-02-12 07:35] VITALS: BP 159/80
--- NOTE | 2020-02-12 09:55 | NUR ---
ASSUMED CARE OF PT AT SHIFT CHANGE, OPENS EYES A SMALL AMOUNT, UTTERED POSSIBLY AN ACKNOWLEDGEMENT WHEN I TOLD HER WE'D BE MOVING HER AROUND AND CLEANING UP HER STOOL, UNDOING ARM RESTRAINTS EVERY TWO HOURS AND RAISING HER ARMS FOR PROM, OF SORTS. LET PHYSICIAN KNOW RE-NEW NEEDED, DR. FALLON ACKNOWLEDGED, SEE SEPARATE INTERENTIONS FOR ASSESSMENTS. WILL CHECK FREQ WE ARE RE-POSITIONING HER. BREATHING STEADY, MOUTH BREATHER, DOESN'T MOVE EXTREMITIES ON HER OWN
--- NOTE | 2020-02-12 09:57 | NUR ---
HER OTHER RN HAS ARRIVED SO WILL GIVE REPORT AND ALLOW HER TO ADM MEDS
[2020-02-12 15:40] VITALS: BP 178/96
[2020-02-12 19:20] VITALS: BP 146/95
--- NOTE | 2020-02-12 19:24 | NUR ---
ASSESSMENT DOCUMENTED. VSS. PT FEBRILE DURING SHIFT. TYLENOL ADMINISTERED PER EMAR. WILL CONTINUE TO MONITOR. PT NONVERBAL AND DOES NOT FOLLOW COMMANDS. PT WILL RESPOND TO STIMULI. PT TURN Q2. SOFT WRIST RESTRAINTS RELEASED Q2HRS. THREE LARGE LIQUID BM TODAY. NSR ON THE MONITOR. PT RESTING IN BED WITH CALL LIGHT IN REACH. WILL CONTINUE TO MONITOR.
[2020-02-13 03:43] VITALS: BP 156/99
--- NOTE | 2020-02-13 05:46 | NUR ---
RESTED QUIETLY THIS SHIFT. OPENS EYES AT TIMES BUT NOT TO VERBAL STIMULI, MAKES SOUNDS BUT HAS NOT SPOKEN ANY NOTICABLE WORDS THIS SHIFT. TURNED EVERY 2-3 HOURS FOR COMFORT AND SKIN CARE. INCONTINENT LOOSE STOOL X3 THIS SHIFT. TOLERATING TUBE FEEDING WITH NO RESIDUALS. TEMP MAX 101.2 THIS SHIFT. BUSHEL GIRL NOTIFIED, BLOOD CULTURES SENT AND TYLENOL GIVEN. NOT PROGRESSING TOWARDS DISCHARGE GOALS. CONTINUE TO ASSES CLOSELY. FOLLOW POC.
[2020-02-13 07:49] VITALS: BP 150/71
[2020-02-13 11:00] VITALS: BP 154/76
[2020-02-13 16:00] VITALS: BP 161/89
[2020-02-13 19:45] VITALS: BP 159/85
--- NOTE | 2020-02-13 19:46 | NUR ---
SPOKE WITH PT "EX ," JULIANNE MULTIPLE TIMES ON THE PHONE DURING SHIFT. ALL QUESTIONS/UPDATES ANSWERED AND GIVEN. ASSESSMENT DOCUMENTED. VSS. PT FEBRILE THIS EVENING. 101 DEGREES VIA AXILLARY. TYLENOL ADMINISTERED VIA TUBE PER EMAR. PT HAD 3 LARGE LIQUID STOOLS TODAY. PT TOLERATING TF AT GOAL RATE OF 55. DOBB VANIA R NARE IN PLACE AND WORKING PROPERLY. PT REMAINS NPO. MOUTH AND YOVANY CARE COMPLETED. CT OF HEAD TO BE COMPLETED AFTER SHIFT CHANGE TONIGHT PER CT/LINDSAY. PT RESTING IN BED WITH CALL LIGHT IN REACH. BILAT SOFT WRIST RESTRAINTS IN PLACE. WILL CONTINUE TO MONITOR.
[2020-02-13 22:10] LABS: ABSOLUTE NEUTROPHILS 6.7 thou/uL (1.4-8.2); BASOPHILS 0.7 % (0.0-2.0); EOSINOPHILS 0.8 % (0.0-3.0); HEMATOCRIT 29.3 % (37.0-47.0); HEMOGLOBIN 9.7 gm/dL (12.0-15.0); LYMPHOCYTES 7.7 % (24.0-44.0); MCH 30.1 pg (26.0-34.0); MCHC 33.3 g/dL (28.0-37.0); MCV 90.5 fL (80.0-100.0); MONOCYTES 9.6 % (1.0-8.0); PLATELET COUNT 231 thou/uL (150-400); POLYS 81.2 % (36.0-66.0); RBC 3.24 mil/uL (4.20-5.00); RDW 14.2 % (10.5-14.5); WBC 8.2 thou/uL (4.0-11.0)
[2020-02-13 22:26] LABS: CALCIUM 7.6 mg/dL (8.5-10.1); CREATININE 1.7 mg/dL (0.6-1.0); POTASSIUM 4.4 mmol/L (3.5-5.1); TOTAL BILIRUBIN 0.4 mg/dL (0.2-1.0); TOTAL PROTEIN 5.6 g/dL (6.4-8.2)
[2020-02-14 00:03] LABS: URINE BILIRUBIN NEGATIVE (Negative); URINE BLOOD TRACE (Negative); URINE CLARITY CLEAR; URINE COLOR YELLOW; URINE GLUCOSE-RANDOM* NEGATIVE (Negative); URINE KETONES NEGATIVE (Negative); URINE LEUKOCYTES TRACE (Negative); URINE NITRITE NEGATIVE (Negative); URINE PROTEIN (DIPSTICK) TRACE (Negative); URINE UROBILINOGEN 0.2 E.U./dl (0.2-1.0)
[2020-02-14 00:37] LABS: CASTS None Seen /LPF (None Seen); MUCUS 0-3 Light strn/LPF (None Seen); SQUAMOUS None Seen /LPF (0-3); URINE RBC 0-2 Rare /HPF (0-2); URINE WBC 0-5 Rare /HPF (0-5)
[2020-02-14 00:38] LABS: BACTERIA None Seen /HPF (None Seen); CRYSTALS None Seen /LPF (None Seen); YEAST Present (None Seen)
--- NOTE | 2020-02-14 02:09 | NUR ---
ASSESSED AT START OF SHIFT 1900. PT AWAKE BOTH EYES OPEN, UN ABLE TO VERBALIZE NEEDS, RESPONDS TO PAINFUL STIMULI. PICC INTACT AND FLUIDS INFUSING. DOBHOF CATH INTACT WITH FEEDING INFUSING. Q6 BLOOD SUGAR CHECKED. PT REPOSITIONED FOR COMFORT. ON 2L OF O2. FOLLEY INTACT AND UA SPECIMEN SENT TO LAB. FALL PREC IN PK[place], FREQ ROUNDING DONE. WILL CONT WITH POC TILL EOS.
[2020-02-14 04:55] VITALS: BP 164/87
[2020-02-14 07:30] VITALS: BP 159/78
[2020-02-14 12:00] VITALS: BP 170/93
--- NOTE | 2020-02-14 12:43 | NUR ---
Patient with CT scan today that notes brain hemorrage. Patient with need of [facility]. Called [facility] their hospitals that have neurosx are closed. [facility], [facility], [facility] closed. [facility] no beds. [facility] no beds. reviewing but reports they are at capacity. [facility] no beds avail. [facility] no beds avail. [place] reviewing. Emily reports Dr Chance not accepting of patient. [facility] at [facility] reports holding patients in their ER. [facility] with no beds avail.
[2020-02-14 13:00] VITALS: BP 163/91
[2020-02-14 14:00] VITALS: BP 166/86
[2020-02-14 15:00] VITALS: BP 158/68
--- NOTE | 2020-02-14 16:46 | NUR ---
ASSUMED CARE AT SHIFT CHANGE, ASSESSMENT DOCUMENTED, BP WAS ELEVATED, DR FALLON NOTIFIED, AND PATIENT MEDICATED PER ORDERS. PATIENT EX UPDATED WITH PATIENT CONDITION. REPORT GIVEN TO VIRGEN BARRERA RN AT , AND PATIENT TRANSFERED TO .
== END 2020-02-14 17:26 | disposition short-term general hospital (02) | DRG 870 ==
LOC: ER 16:27 → EROBS 20:12 → ICU 20:12 → 2N 02-11 14:47
PROVIDERS: Emergency Medicine; Hospitalist; Internal Medicine; Internal Medicine Pulmonary Disease; Nurse Practitioner; Nurse Practitioner Family; Pediatrics; ADMIT Internal Medicine; ATTEND Internal Medicine
PROC: 0BH17EZ Insertion of Endotracheal Airway into Trachea, Via Natural or Artificial Opening (ICD-10-PCS; principal; 2020-02-04)
PROC: 5A1955Z Respiratory Ventilation, Greater than 96 Consecutive Hours (ICD-10-PCS; principal; 2020-02-04)
PROC: 02HV33Z Insertion of Infusion Device into Superior Vena Cava, Percutaneous Approach (ICD-10-PCS; 2020-02-07)
PROC: B548ZZA Ultrasonography of Superior Vena Cava, Guidance (ICD-10-PCS; 2020-02-07)
PROC: 5A09357 Assistance with Respiratory Ventilation, Less than 24 Consecutive Hours, Continuous Positive Airway Pressure (ICD-10-PCS; 2020-02-09)
PROC: 5A09357 Assistance with Respiratory Ventilation, Less than 24 Consecutive Hours, Continuous Positive Airway Pressure (ICD-10-PCS; 2020-02-10)
PROC: 5A09357 Assistance with Respiratory Ventilation, Less than 24 Consecutive Hours, Continuous Positive Airway Pressure (ICD-10-PCS; 2020-02-11)
DX: A41.9 Sepsis, unspecified organism (principal); J96.01 Acute respiratory failure with hypoxia; J69.0 Pneumonitis due to inhalation of food and vomit; E43 Unspecified severe protein-calorie malnutrition; G92 Toxic encephalopathy; N17.9 Acute kidney failure, unspecified; I62.9 Nontraumatic intracranial hemorrhage, unspecified; K21.9 Gastro-esophageal reflux disease without esophagitis; I95.9 Hypotension, unspecified; E16.2 Hypoglycemia, unspecified; F32.9 Major depressive disorder, single episode, unspecified; F41.9 Anxiety disorder, unspecified; K31.89 Other diseases of stomach and duodenum; Z20.828 Contact with and (suspected) exposure to other viral communicable diseases; Z90.710 Acquired absence of both cervix and uterus; Z79.899 Other long term (current) drug therapy; Z68.26 Body mass index [BMI] 26.0-26.9, adult
CPT/HCPCS: 10078; 10081; 27000

== ENCOUNTER 2020-08-22 06:43 | Inpatient (IN) | payer OTHER ==
[~2020-08-22] VITALS: Ht 165.1 cm; Wt 56.4 kg
[2020-08-22 06:43] VITALS: BP 123/80
[2020-08-22 07:26] LABS: BASOPHILS 0.3 % (0.0-2.0); HEMATOCRIT 38.7 % (37.0-47.0); HEMOGLOBIN 12.8 gm/dL (12.0-15.0); LYMPHOCYTES 11.9 % (24.0-44.0); MCH 29.9 pg (26.0-34.0); MCV 90.5 fL (80.0-100.0); MONOCYTES 5.6 % (1.0-8.0); PLATELET COUNT 246 thou/uL (150-400); POLYS 81.2 % (36.0-66.0); RBC 4.27 mil/uL (4.20-5.00); RDW 20.2 % (10.5-14.5); WBC 7.4 thou/uL (4.0-11.0)
[2020-08-22 08:51] LABS: ANISOCYTOSIS 1+; PLATELET ESTIMATE NORMAL
[2020-08-22 10:06] LABS: BE(vivo) -1.1 mmol/L (-2 to +3); HCO3 22.8 mmol/L (22.0-26.0); PCO2 35.6 mmHg (35.0-45.0); PO2 61.9 mmHg (80.0-100.0); pH 7.425 (7.360-7.450); sO2 92.4 % (92.0-98.0)
[2020-08-22 10:39] LABS: ANION GAP 9 mmol/L (7-16); BUN 22 mg/dL (7-18); CALCIUM 9.1 mg/dL (8.5-10.1); CHLORIDE 106 mmol/L (98-107); CO2 24 mmol/L (21-32); CREATININE 0.8 mg/dL (0.6-1.0); GLUCOSE 109 mg/dL (74-106); POTASSIUM 4.2 mmol/L (3.5-5.1); SODIUM 139 mmol/L (136-145)
[2020-08-22 10:49] LABS: ALBUMIN 3.4 g/dL (3.4-5.0); MAGNESIUM 2.2 mg/dL (1.8-2.4); SGOT 75 U/L (15-37); SGPT 196 U/L (14-59); TOTAL BILIRUBIN 0.6 mg/dL (0.2-1.0); TOTAL PROTEIN 7.3 g/dL (6.4-8.2); TROPONIN-I <0.06 ng/mL (<0.06)
[2020-08-22 12:08] VITALS: BP 121/58
--- NOTE | 2020-08-22 13:07 | EKG ---
[address] [address] ELECTROCARDIOGRAM REPORT Name: MICHELLE DE LA CRUZ Room #: 203-P ADM IN M.R.#: [id number] Admission: 08/22/20 Attend Phys: Bill Braden MD Discharge: Date of : 51 Report #: [id number] [facility] ED Test Date: 2020-08-22 Test Time: 07:26:42 Pat Name: MICHELLE DE LA CRUZ Department: Room: [facility] Gender: F Technical Communicator: isis : 1955 Requested By: Bradford Garcia Order Number: [id number] MD: Elias Serra Measurements Intervals [place] Rate: 80 P: 41 KS: 173 QRS: 2 QRSD: 90 T: 28 QT: 400 QTc: 462 Interpretive Statements Sinus rhythm Low voltage, extremity leads Compared to ECG 01/22/2020 12:01:46 Electronically Signed On 08-22-2020 13:07:05 CDT by Elias Serra [email or web address] <ELECTRONICALLY SIGNED> By: Elias Serra MD 08/22/20 1307 0726 07 MD JUNG Herron
[2020-08-22 13:10] VITALS: BP 131/65
[2020-08-22 16:00] VITALS: BP 125/74
--- NOTE | 2020-08-22 19:14 | NUR ---
Admitted from ER due to cough and SOB at approx 1315; transferred to room safely. Admission assessment, history and education done. Admission forms signed. On telemetry, no complains and signs of chest pain, crushing sensation and heaviness. Assisted in ADLs. On room air, pt initially on O2 at 2lpm via nasal cannula from ER, RT checked pt- 94% on room air. On nothing per orem. Continent of bowel and bladder, able to use bedside commode, standby assist, gait belt- unsteady on her feet. Falls bundle in place. With SL at R FA- intact; on IV antibiotics. With PEG tube at LUQ of her abdomen- dressing in place; pt unable to recall tube feeding regimen at home- Dr Braden informed re: this. Pt with no orders for meds/POC- Dr Braden informed, a/w further orders. With consult for Pulmo and Gastro- risk prevention engineer called in consult. Pt's called, informed re: admission; pt having Jevity 1.5 at 60ml/hr, continous- relayed to physician. Pt to have 100ml water flushes every 6hrs. Pt with abdominal ultrasound order from Gastro- Ultrasound staff called and said to keep pt NPO and hold TF- pt updated. Ultrasound done at 1830. Upon setting up TF, PEG tube with resistance upon flushing- tried to soak with coke. Night RN informed re: resistance from flushing- to check after a few minutes; regimen relayed to Night RN. No complains of pain made during assessment. Dr Braden informed that med rec done and for r/v. To continue monitoring patient.
[2020-08-22 19:18] VITALS: BP 125/69
[2020-08-22 23:55] VITALS: BP 97/48
--- NOTE | 2020-08-23 02:29 | NUR ---
PT CARE ASSUMED WT 1900 WITH PT IN BED WATCHING TV.PT IS A/O X4 .PT IS UP X1 ASSIST WITH GAIT BELT AND WALKER TO BEDSIDE COMMODE.TF STARTED AFTER BEING ABLE TO FLUSH PEG TUBE AT 55CC/HR.MEDS ADMINISTERED THROUGH PEG TUBE.PT DENIED PAIN ,CHESR PAIN,NAUSEA AND VOMITING.PT CONTINENT TO B/B.IV ACCESS ON RT FA SL.PT TOLERATING TF WELL.NO NEW C/O AT THIS TIME.WILL CONTINUE TO MONITOR PER POC
[2020-08-23 02:55] LABS: HEMATOCRIT 34.6 % (37.0-47.0); HEMOGLOBIN 11.5 gm/dL (12.0-15.0); MCH 30.4 pg (26.0-34.0); MCHC 33.4 g/dL (28.0-37.0); MCV 91.1 fL (80.0-100.0); RBC 3.8 mil/uL (4.20-5.00); RDW 19.9 % (10.5-14.5); WBC 7.4 thou/uL (4.0-11.0)
[2020-08-23 03:38] LABS: ALBUMIN 3.1 g/dL (3.4-5.0); CALCIUM 8.7 mg/dL (8.5-10.1); CREATININE 0.8 mg/dL (0.6-1.0); MAGNESIUM 2.1 mg/dL (1.8-2.4); POTASSIUM 3.5 mmol/L (3.5-5.1); TOTAL BILIRUBIN 0.9 mg/dL (0.2-1.0); TOTAL PROTEIN 6.7 g/dL (6.4-8.2)
[2020-08-23 03:50] VITALS: BP 123/60
[2020-08-23 08:00] VITALS: BP 105/61
--- NOTE | 2020-08-23 08:42 | NUR ---
ASSUMED PT CARE AT 0700 PT RESTING AT THIS TIME. AT 0835, ASSESSMENT PERFORMED CHARTED. MEDICATION ADMINISTRATION THROUGH PEG TUBE. NO RESIDUAL THROUGH PEG TUBE, 100ML FLUSH FOLLOWING MED ADMINISTRATION DUE TO HX OF PEG TUB BEING CLOGGED. VSS. WILL CONTINUE TO MONITOR AND FOLLOW POC.
--- NOTE | 2020-08-23 08:51 | NUR ---
ASSESSMENT: CM REVIEWED CHART AND MET WITH PATIENT. PT IS ALERT AND ORIENTED X4. PT WAS ADMITTED DUE TO COUGH AND SHORTNESS OF BREATH. PT HAS RECEURRENT HYPOXIC RESPIRATORY FAILURE AND SUSPECT POSSIBLE ASPIRATION PNEUOMIA. PT IS CURRENTLY ON IV ANBX. COVID 19 WAS RULED OUT AND PT REPORTS RECEIVING BOTH VACCINES OF MODERNA. PT REPORTS THAT SHE LIVES IN A HOUSE WITH HER . PT REPORTS HAVING A RAMP TO ENTER THE HOME. PT STATES SHE HAS NO STEPS SHE HAS TO USE INSIDE. PT STATES SHE HAS A WHEELCHAIR, WALKER (WHICH SHE USES MAJORITY OF THE TIME), AND SHOWER CHAIR. PT HAS A PEG TUBE AND REPORTS SHE GETS HER TUBE FEEDING SUPPLIES DELIVERED ABOUT EVERY 5 WEEKS THROUGH [facility]. CM CONTACTED DARVIN AT [facility] WHO CONFIRMED PT IS ON SERVICE WITH THEM FOR HER FEEDS. PT IS CURRENTLY IN SERVICES WITH [facility]. CM CONTACTED [facility] TO NOTIFY THEM WELL FAXED CLINICAL INFORMATION. PT REPORTS BEING TO MANY DIFFERENT SNFS IN THE PAST INCLUDING [facility] AND PT CANNOT RECALL THE OTHERS. CM WILL CONTINUE TO FOLLOW. PT IS HOPEFUL SHE WILL BE ABLE TO RETURN HOME WITH HH.
[2020-08-23 11:41] VITALS: BP 100/69
--- NOTE | 2020-08-23 11:42 | NUR ---
PT WORKING WITH PT/OT. ASSESSMENT UNCHANGED. WILL CONTINUE TO MONITOR AND FOLLOW POC.
--- NOTE | 2020-08-23 13:30 | NUR ---
Patient evaled by [facility] and reports she does not want to go to any rehab facility. She was recently in rehab and does not want to return to any rehab place. Patient reports her can assist at dc even though he is paralized. She has [facility] and [facility] for tube feedings. Patient wants to dc home with HH resumption at dc.
[2020-08-23 15:32] VITALS: BP 101/64
[2020-08-23 15:47] VITALS: BP 101/64
--- NOTE | 2020-08-23 15:54 | NUR ---
PT IN BED, ASSESSMENT UNCHANGED. TUBE FEED CHANGED, AND 100ML WATER FLUSH ADMINISTERED. VSS. WILL CONTINUE TO MONITOR AND FOLLOW POC.
[2020-08-23 19:18] VITALS: BP 111/76
--- NOTE | 2020-08-24 03:18 | NUR ---
ASSUMED CARE OF PT AT SHIFT CHANGE. PT IS AOX4 AND LETS NEEDS BE KNOWN. FALL PRECAUTION IN PLACE. ASSESSMENT CHARTED. TF CONTINUED AT GOAL RATE AND FLUSHED PER ORDER. PT DENIED PAIN, NAUSEA OR SOA. PT WAS ABLE TO GET COMFORTABLE AND SLEEP PART OF THE SHIFT. VSS AND NO S/S OF ACUTE DISTRESS. WILL CONTINUE TO MONITOR FOR CHANGES.
[2020-08-24 03:37] VITALS: BP 102/60
[2020-08-24 07:58] VITALS: BP 108/62
[2020-08-24 11:46] VITALS: BP 108/66
[2020-08-24 15:12] VITALS: BP 112/68
[2020-08-24 19:43] VITALS: BP 107/64
[2020-08-25 03:52] VITALS: BP 111/59
--- NOTE | 2020-08-25 04:00 | NUR ---
ASSUMED CAER OF PT AT SHIFT CHANGE. PT IS AOX4 AND LETS NEEDS BE KNOWN. FALL PRECAUTION IN PLACE. PT IS NPO. ELDER IN PLACE OF PEG TUBE AND IS CLAMPED. PT DENIED PAIN, NAUSEA OR SOA. PT WAS ABLE TO GET COMFORTABLE AND SLEEP PART OF THE SHIFT. VSS AND NO S/S OF ACUTE DISTRESS. WILL CONTINUE TO MONITOR.
[2020-08-25 07:50] VITALS: BP 115/74
[2020-08-25 12:15] VITALS: BP 119/80
[2020-08-25 14:49] VITALS: BP 114/71
[2020-08-25 20:15] VITALS: BP 131/72
[2020-08-26 04:45] VITALS: BP 140/82
[2020-08-26 05:28] LABS: CALCIUM 8.8 mg/dL (8.5-10.1); CREATININE 0.7 mg/dL (0.6-1.0); POTASSIUM 3.9 mmol/L (3.5-5.1); TOTAL BILIRUBIN 0.6 mg/dL (0.2-1.0); TOTAL PROTEIN 6.9 g/dL (6.4-8.2)
--- NOTE | 2020-08-26 05:47 | NUR ---
ASSUMED CAER OF PT AT SHIFT CHANGE. PT IS AOX3-4 AND LETS NEEDS BE KNOWN. FALL PRECAUTION IN PLACE. PT DENIED PAIN, NAUSEA OR SOA. ASSESSMENT CHARTED. TF GOING AT GOAL RATE OF 60ML/HR. FLUSHED PER ORDER. PT WAS ABLE TO GET COMFORTABLE AND SLEEP PART OF THE SHIFT. WILL CONTINUE TO MONITOR.
[2020-08-26 07:31] VITALS: BP 134/86
[2020-08-26 11:45] VITALS: BP 105/65
[2020-08-26] MEDS ORDERED: AUGMENTIN 875-1 EACH PO (12:04)
--- NOTE | 2020-08-26 12:28 | NUR ---
Walked with the patient for half of the hallway per Dr. Braden's request, tolerating poor: impulsive, very poor balance, dsypnea on activity, not knowing own limit. Texted to Dr. Braden about it; called, saying that he hoped the could go to some acute rehab, but not any nursing facility and their home care would stop after one week. his phone number: [phone]. Dr. Braden has been reported to.
[2020-08-26 15:03] VITALS: BP 119/68
[2020-08-26 20:15] VITALS: BP 126/68
--- NOTE | 2020-08-27 03:39 | NUR ---
ASSESSMENTS CHARTED, MEDS CHARTED GIVEN. PATIENT RESTING IN BED DURING SHIFT. DENIED PAIN. REDRESSED PEG TUBE SITE. WATER BOLUS GIVEN. JEVITY RUNNING AT GOAL. PATIENT UP WITH ONE ASSIST AND WALKER. PATIENT IS VERY UNSTEADY. PATIENT WAS WORRYING HERSELF ABOUT GOING TO REHAB FACILITY. I EXPAINED THE [facility] IS NOT A VEHICLE BODY MAKER FACILITY, THAT THEY ARE THERE TO MAKE HER STRONGER THEN SEND HER HOME. SHE IS FEELING BETTER ABOUT GOING [facility] IF SHE QUALIFIES.
[2020-08-27 04:45] VITALS: BP 101/65
[2020-08-27 07:30] VITALS: BP 116/74
[2020-08-27 15:45] VITALS: BP 111/73
[2020-08-27 19:38] VITALS: BP 116/64
--- NOTE | 2020-08-28 01:27 | NUR ---
DENIES PAIN AND SOB.PATIENT HAS DRY COUGH.UP WITH ASSIST TO THE BEDSIDE COMMODE.JEVITY 1.5 AT 60 ML/HR WITH WATER FLUSHES Q6 HOURS.NO RESIDUALS NOTED. MONITOR SHOWS SR.POC CONTINUED.
[2020-08-28 04:14] VITALS: BP 98/60
[2020-08-28 07:57] VITALS: BP 108/62
--- NOTE | 2020-08-28 10:06 | NUR ---
RD consulted for transition to nocturnal tube feed. Recommend jevity 1.5 at 80ml/hr x 16 hr.
[2020-08-28 11:44] VITALS: BP 129/48
--- NOTE | 2020-08-28 12:45 | NUR ---
PATIENT HAS BEEN ACCEPTED FOR ACUTE REHAB STAY ON [facility] PENDING AUTHORIZATION FROM PATIENT'S INSURANCE. ZANE LUNA CANTACTED AND AUTHORIZATION REQUESTED. WILL AWAIT INSURANCE RESPONSE. THANK YOU FOR THIS REFERRAL.
--- NOTE | 2020-08-28 13:43 | NUR ---
Patient had video swallow and at baseline with diet. Updated grp home and faxed updated clinical information.
[2020-08-28 15:12] VITALS: BP 121/72
[2020-08-28 20:00] VITALS: BP 118/65
--- NOTE | 2020-08-29 03:48 | NUR ---
DENIES PAIN.SLEPT.ON CONTINOUS NOCTURNAL TUBE FEEDING.DENIES NEEDS.POC CONTINUED.
[2020-08-29 04:00] VITALS: BP 111/62
--- NOTE | 2020-08-29 09:48 | NUR ---
Spoke with patient and discussed acute rehab [facility] is accepting clinically and submitting for auth. discussed if no auth option of skilled rehab. Nasim adament no to skilled. She has been at [facility] in past and reports she did not have a good stay. She has skilled [place] list but not agreeable to skilled.
[2020-08-29 11:43] LABS: ABSOLUTE NEUTROPHILS 2.7 thou/uL (1.4-8.2); BASOPHILS 0.9 % (0.0-2.0); EOSINOPHILS 1.1 % (0.0-3.0); HEMATOCRIT 35.6 % (37.0-47.0); HEMOGLOBIN 11.6 gm/dL (12.0-15.0); LYMPHOCYTES 21.1 % (24.0-44.0); MCH 29.8 pg (26.0-34.0); MCHC 32.7 g/dL (28.0-37.0); MCV 91.3 fL (80.0-100.0); MONOCYTES 7.7 % (1.0-8.0); PLATELET COUNT 261 thou/uL (150-400); POLYS 69.2 % (36.0-66.0); RDW 18.7 % (10.5-14.5); WBC 3.9 thou/uL (4.0-11.0)
[2020-08-29 11:45] VITALS: BP 100/64
[2020-08-29 12:50] LABS: ANISOCYTOSIS 1+; PLATELET ESTIMATE NORMAL
--- NOTE | 2020-08-29 13:57 | NUR ---
patient accepted to [facility] today. Plan transfer later today.
[2020-08-29 16:00] VITALS: BP 116/72
== END 2020-08-29 18:23 | DRG 871 ==
LOC: ER 06:43 → 2N 11:02 → EROBS 11:02 → 2N 12:54
PROVIDERS: Emergency Medicine; Internal Medicine Nephrology; Nurse Practitioner; ADMIT Internal Medicine; ATTEND Internal Medicine
PROC: 0DHA3UZ Insertion of Feeding Device into Jejunum, Percutaneous Approach (ICD-10-PCS; principal; 2020-08-25)
DX: A41.9 Sepsis, unspecified organism (principal); E43 Unspecified severe protein-calorie malnutrition; J96.01 Acute respiratory failure with hypoxia; J69.0 Pneumonitis due to inhalation of food and vomit; G92 Toxic encephalopathy; Z68.1 Body mass index [BMI] 19.9 or less, adult; K94.23 Gastrostomy malfunction; F31.9 Bipolar disorder, unspecified; K21.9 Gastro-esophageal reflux disease without esophagitis; K22.0 Achalasia of cardia; R53.81 Other malaise; F41.9 Anxiety disorder, unspecified; Y83.8 Other surgical procedures as the cause of abnormal reaction of the patient, or of later complication, without mention of misadventure at the time of the procedure; Z20.822 Contact with and (suspected) exposure to COVID-19; Z90.710 Acquired absence of both cervix and uterus; Z79.899 Other long term (current) drug therapy; Z90.49 Acquired absence of other specified parts of digestive tract; Z86.73 Personal history of transient ischemic attack (TIA), and cerebral infarction without residual deficits; Z91.19 Patient's noncompliance with other medical treatment and regimen
CPT/HCPCS: 10081

== ENCOUNTER 2020-08-29 12:34 | Inpatient (IN) | payer OTHER ==
[~2020-08-29] VITALS: Ht 165.1 cm; Wt 58.1 kg
--- NOTE | ~2020-08-29 | PLAN ---
[facility] [place] [address] REHAB UNIT PLAN OF CARE Name: MICHELLE DE LA CRUZ Room #: 515-P ADM IN M.R.#: [id number] Admission: 08/29/20 Attend Phys: Sonido Yip MD Discharge: Date of : 51 Report #: [id number] THIS REPORT FOR: cc: Johnathon Chiang MD, Christopher B. MD Smithson,Sonido Schmidt MD ~ DOC #: [id number] Sonido Yip MD DATE OF SERVICE: 09/01/2020 PROGRESS NOTE AND OVERALL PLAN OF CARE SUBJECTIVE: The patient was seen back today in followup. She is in no distress. Last recorded temperature 97.5, pulse 80, respirations 20, blood pressure 126/77. Gastroenterology is involved. Ultrasound of the abdomen ordered with some irritation around the J-tube site. It is noted that the patient needs to be on continuous tube feeding and the J-tube will get clogged. The abdominal ultrasound did not show any ultrasonography visible abnormality seen surrounding the patient's J-tube insertion site. No focal fluid collection or mass. She has remained in good spirits and is well motivated. No calf swelling. She is in no distress. Her transfers are contact guard. She is ambulating min assist 150 feet with a front-wheeled walker. She has improved from a moderate assist level. In occupational therapy, lower body dressing is min assist. In speech therapy, she is not being seen as she was thought to be at her prior baseline. ASSESSMENT: 1. Medical complexity with generalized debilitation. 2. Recurrent acute hypoxic events with aspiration pneumonia and sepsis. 3. Achalasia, status post jejunostomy tube. 4. History of craniotomy for right hemorrhage in 2019. 5. Bipolar disorder. 6. Gastroesophageal reflux disease. PLAN: The overall plan of care is based on the pre-admission screen and information garnered from therapy assessments. 1. Estimated length of stay is probably around 10 days-14 days. She is progressing functionally. 2. Medical prognosis is reasonably good. 3. Anticipated interventions include the interdisciplinary acute inpatient palpitation program. 4. Anticipated functional outcomes would be for the patient to become modified independent with transfers, mobility, ADLs, so she can return back to the home setting. 5. Discharge destination would be back home with her . He is in a wheelchair and is disabled, but is otherwise able to give her assistance. [address] [address] REHAB UNIT PLAN OF CARE Name: MICHELLE DE LA CRUZ Room #: 515-P ADM IN .R.#: [id number] Admission: 08/29/20 Attend Phys: Sonido Yip MD Discharge: Date of : 51 Report #: [id number] 6. Expected therapy by discipline includes PT and OT 1-1/2 hours per day each 5 days a week throughout the duration of the acute inpatient rehabilitation stay. ADDENDUM: The patient's prognosis for significant practical improvement within a reasonable period of time appears good. Given the patient's complex medical condition and risk of further medical complication, rehabilitation services could not be safely provided at a lower level of care such as a alf facility. MD SHERMAN Mendoza By: 1146 2048 Sonido Yip MD /nt
--- NOTE | ~2020-08-29 | H ---
[facility] [place] [address] HISTORY AND PHYSICAL Name: MICHELLE DE LA CRUZ Room #: 515-P ADM IN M.R.#: [id number] Admission: 08/29/20 Attend Phys: Sonido Yip MD Discharge: Date of : 51 Report #: [id number] THIS REPORT FOR: cc: Johnathon Chiang MD, Christopher B. MD Smithson, David G. MD ~ DOC #: [id number] Sonido Yip MD DATE OF SERVICE: 08/30/2020 The patient is admitted for acute in-hospital inpatient rehabilitation. HISTORY OF PRESENT ILLNESS: She is a 64-year-old female who has a complicated past medical history and was originally admitted on 08/22/2020 for shortness of breath and cough. She has a prior history of a partial esophagectomy with gastric pull-up with ongoing PEG tube placement and has a prior craniotomy for acute hemorrhage in the posterior parietal and occipital lobes of the right hemisphere. She was admitted with a recurrent acute hypoxic event suspected recurrent aspiration pneumonia and sepsis. She has achalasia. Gastroenterology was involved. She has gradually improved from her sepsis, noted to have acute on chronic toxic metabolic encephalopathy. Continues on the tube feedings. With the PEG tube dislodged, she underwent G-tube replacement done on 08/25. She has now been admitted for acute in-hospital inpatient rehabilitation. PAST MEDICAL HISTORY: As delineated above. She has the prior partial esophagectomy and has the prior craniotomy as noted. She also has a history of GERD, bipolar disorder and depression. She has severe protein calorie malnutrition. MEDICATIONS: Please see the medication list. ALLERGIES: No known drug allergies. SOCIAL HISTORY: She lives in a house with her disabled spouse who is wheelchair bound. There are ramps. She did use a walker prior to admission. She does note that family members can assist if needed. She was on tube feedings at home before. REVIEW OF SYSTEMS: No current complaints of chest pain, shortness of breath or abdominal discomfort. PHYSICAL EXAMINATION: GENERAL: A 64-year-old white female in no obvious distress. VITAL SIGNS: Recorded temperature 97.9, pulse 66, respirations 19, blood pressure 127/76. NEUROLOGIC: She is alert, pleasant. There is a definite delay in her responses, but she can follow basic 1-step commands. Facies appeared symmetric. She has functional range of motion of both upper extremities. Strength is a [facility] [address] [place] [address] HISTORY AND PHYSICAL Name: MICHELLE DE LA CRUZ Room #: 515-P [facility] IN [facility].#: [id number] Admission: 08/29/20 Attend Phys: Sonido Yip MD Discharge: Date of : 51 Report #: [id number] grade 4-/5. DTRs are trace to 1. Lower extremities, no focal calf swelling. Functional range of motion with strength grade 4- to 3+/5. DTRs are trace to 1. Abdominal examination, she does have the tube in place with dressing. Bowel sounds are positive, nontender. She is of slender build. Lungs sounded reasonably clear. Functionally, she is standby assistance to try to transfer, is min assist and has some premorbid left-sided neglect that is noted. IMPRESSION: A 64-year-old female with the following problem list: 1. Medical complexity with generalized debilitation. 2. Recurrent acute hypoxic event. 3. Suspected recurrent aspiration pneumonia. 4. Sepsis. 5. Achalasia. 6. Prior partial esophagectomy with gastric pull-up. She is status post replacement with G-tube. 7. Past history of a craniotomy for acute hemorrhage in the posterior parietal and occipital lobes of the right hemisphere. She does have some premorbid left-sided neglect. 8. History of bipolar disorder. 9. Gastroesophageal reflux disease. 10. Depression. 11. Lives with disabled . PLAN: The patient has been admitted for acute in-hospital inpatient rehabilitation. Please see the patient's previous and current functional status. As far as risk of complication, she has multiple medical comorbidities as noted above. Initial plan of care involves the interdisciplinary acute inpatient palpitation program. Measurable functional goals would be for the patient to become modified independent with transfers, mobility, ADLs and to improve in overall cognition, so that she can return back to the home setting. Prognosis is reasonably good with estimated length of stay probably at least 14 days pending progress. Potential barriers would include her multiple medical comorbidities and decreased functional status. Dietary has been consulted. Addendum: Speech therapy evaluated her on acute and noted she was cognitively at baseline. Sonido Yip MD [facility] By: [id number] [id number] Sonido Yip MD /nt
[2020-08-29 18:38] VITALS: BP 127/76
[2020-08-30 06:11] LABS: HEMATOCRIT 33.1 % (37.0-47.0); HEMOGLOBIN 11.1 gm/dL (12.0-15.0); MCH 30.5 pg (26.0-34.0); MCHC 33.6 g/dL (28.0-37.0); MCV 90.9 fL (80.0-100.0); RBC 3.64 mil/uL (4.20-5.00); RDW 18.7 % (10.5-14.5); WBC 3.8 thou/uL (4.0-11.0)
[2020-08-30 06:18] LABS: CALCIUM 8.7 mg/dL (8.5-10.1); CREATININE 0.7 mg/dL (0.6-1.0); POTASSIUM 4.1 mmol/L (3.5-5.1)
[2020-08-30 08:00] VITALS: BP 120/73
[2020-08-30 19:55] VITALS: BP 112/72
[2020-08-31 08:00] VITALS: BP 105/65
[2020-08-31 19:17] VITALS: BP 134/75
[2020-09-01 07:15] VITALS: BP 126/77
[2020-09-01 20:14] VITALS: BP 109/72
[2020-09-02 05:40] LABS: ABSOLUTE NEUTROPHILS 4.1 thou/uL (1.4-8.2); EOSINOPHILS 1.8 % (0.0-3.0); HEMATOCRIT 33.2 % (37.0-47.0); HEMOGLOBIN 11.2 gm/dL (12.0-15.0); LYMPHOCYTES 16.1 % (24.0-44.0); MCH 30.3 pg (26.0-34.0); MCHC 33.7 g/dL (28.0-37.0); MCV 90.1 fL (80.0-100.0); MONOCYTES 7.4 % (1.0-8.0); PLATELET COUNT 274 thou/uL (150-400); POLYS 73.7 % (36.0-66.0); RBC 3.69 mil/uL (4.20-5.00); RDW 19.2 % (10.5-14.5); WBC 5.6 thou/uL (4.0-11.0)
[2020-09-02 05:46] LABS: CALCIUM 8.9 mg/dL (8.5-10.1); CREATININE 0.6 mg/dL (0.6-1.0); MAGNESIUM 2.3 mg/dL (1.8-2.4); POTASSIUM 4.3 mmol/L (3.5-5.1)
[2020-09-02 08:00] VITALS: BP 107/64
[2020-09-02 21:48] VITALS: BP 117/71
[2020-09-03 08:00] VITALS: BP 123/66
[2020-09-03 19:45] VITALS: BP 112/72
[2020-09-04 05:27] LABS: CALCIUM 9.2 mg/dL (8.5-10.1); CREATININE 0.7 mg/dL (0.6-1.0); POTASSIUM 4.2 mmol/L (3.5-5.1)
[2020-09-04 07:15] VITALS: BP 102/64
[2020-09-04 19:55] VITALS: BP 96/62
[2020-09-05 03:05] LABS: GLYCOHEMOGLOBIN (HGB A1C) 5.6 % (4.8-5.6)
[2020-09-05 08:00] VITALS: BP 108/67
[2020-09-05 19:40] VITALS: BP 103/63
[2020-09-06 08:00] VITALS: BP 102/59
[2020-09-06] MEDS ORDERED: FLORANEX GRANU1 EACH PO (12:31)
[2020-09-06 14:02] VITALS: BP 102/59
[2020-09-06 21:10] VITALS: BP 112/63
[2020-09-07 07:15] VITALS: BP 98/54
[2020-09-07 19:44] VITALS: BP 117/76
[2020-09-08 08:00] VITALS: BP 103/63
[2020-09-08] MEDS ORDERED: PAROXETINE HCL30 MG PO (11:45)
[2020-09-08] MEDS ORDERED: OMEPRAZOLE20 M2 PO (11:45)
[2020-09-08] MEDS ORDERED: OLANZAPINE15 MG PO (11:45)
== END 2020-09-08 13:53 | disposition home health service (06) | DRG 947 ==
PROVIDERS: Nurse Practitioner; Nurse Practitioner Family; ADMIT Physical Medicine & Rehabilitation; ATTEND Physical Medicine & Rehabilitation
DX: R53.81 Other malaise (principal); A41.9 Sepsis, unspecified organism; J69.0 Pneumonitis due to inhalation of food and vomit; E87.0 Hyperosmolality and hypernatremia; K94.23 Gastrostomy malfunction; F31.9 Bipolar disorder, unspecified; G24.01 Drug induced subacute dyskinesia; K21.9 Gastro-esophageal reflux disease without esophagitis; T50.995A Adverse effect of other drugs, medicaments and biological substances, initial encounter; Y92.89 Other specified places as the place of occurrence of the external cause; K22.0 Achalasia of cardia; R74.01 Elevation of levels of liver transaminase levels
CPT/HCPCS: 10112

== ENCOUNTER 2020-09-10 09:26 | Emergency (ER) | payer OTHER ==
[~2020-09-10] VITALS: Ht 165.1 cm; Wt 54.4 kg
[~2020-09-10 09:26] MED LIST changes: +FLORANEX GRANU1 EACH PO
[2020-09-10] MEDS ORDERED: MELATONIN5 MG SUBLING (09:39)
[2020-09-10] MEDS ORDERED: MIDODRINE HCL 55 M1 PO (09:39)
[2020-09-10] MEDS ORDERED: FLORANEX TABLE1 EACH PO (09:39)
--- NOTE | 2020-09-10 11:44 | EKG ---
[place] [address] [facility] [place] [address] ELECTROCARDIOGRAM REPORT Name: MICHELLE DE LA CRUZ [id number] Admission: 09/10/20 Attend Phys: Discharge: Date of : 51 Report #: [id number] [facility] ED Test Date: 2020-09-10 Test Time: 09:47:50 Pat Name: MICHELLE DE LA CRUZ Department: Room: Gender: F Biological Technical Officer: gage : 1955 Requested By: Florencio Marcelo Order Number: [id number] MD: Gio Hannon Measurements Intervals Gray Rate: 59 P: 0 ID: QRS: 8 QRSD: 81 T: 30 QT: 450 QTc: 446 Interpretive Statements Sinus bradycardia Low voltage, extremity and precordial leads Compared to ECG 08/22/2020 07:26:42 No significant change was found Electronically Signed On 09-10-2020 11:43:52 CDT by Gio Hannon [email or web address] <ELECTRONICALLY SIGNED> By: Gio Hannon MD, [facility] 09/10/20 1143 [id number] [id number] Gio Hannon MD, FACC /EPI
[2020-09-10 11:45] LABS: ABSOLUTE NEUTROPHILS 2.2 thou/uL (1.4-8.2); BASOPHILS 1.1 % (0.0-2.0); EOSINOPHILS 1.2 % (0.0-3.0); HEMATOCRIT 37.3 % (37.0-47.0); HEMOGLOBIN 12.2 gm/dL (12.0-15.0); LYMPHOCYTES 25.9 % (24.0-44.0); MCHC 32.7 g/dL (28.0-37.0); MCV 91.6 fL (80.0-100.0); MONOCYTES 9.1 % (1.0-8.0); PLATELET COUNT 317 thou/uL (150-400); POLYS 62.7 % (36.0-66.0); RBC 4.08 mil/uL (4.20-5.00); WBC 3.5 thou/uL (4.0-11.0)
[2020-09-10 12:06] LABS: ANION GAP 9 mmol/L (7-16); BUN 29 mg/dL (7-18); CALCIUM 8.8 mg/dL (8.5-10.1); CHLORIDE 106 mmol/L (98-107); CO2 28 mmol/L (21-32); CREATININE 0.8 mg/dL (0.6-1.0); GLUCOSE 97 mg/dL (74-106); POTASSIUM 4.5 mmol/L (3.5-5.1); SODIUM 143 mmol/L (136-145)
[2020-09-10 12:11] LABS: ALBUMIN 3.4 g/dL (3.4-5.0); DIRECT BILIRUBIN < 0.1 mg/dL (<0.1-0.2); MAGNESIUM 2.1 mg/dL (1.8-2.4); PHOSPHORUS 3.5 mg/dL (2.6-4.7); SALICYLATE < 2.8 mg/dL (2.8-20.0); SGOT 47 U/L (15-37); SGPT 74 U/L (14-59); TOTAL BILIRUBIN 0.3 mg/dL (0.2-1.0); TOTAL PROTEIN 6.8 g/dL (6.4-8.2); TROPONIN-I <0.06 ng/mL (<0.06)
[2020-09-10 12:46] LABS: URINE BILIRUBIN NEGATIVE (Negative); URINE BLOOD NEGATIVE (Negative); URINE CLARITY CLEAR; URINE COLOR YELLOW; URINE GLUCOSE-RANDOM* NEGATIVE (Negative); URINE KETONES NEGATIVE (Negative); URINE NITRITE-REFLEX NEGATIVE (Negative); URINE PROTEIN (DIPSTICK) NEGATIVE (Negative); URINE SPECIFIC GRAVITY 1.015 (1.005-1.035); URINE UROBILINOGEN 0.2 E.U./dl (0.2-1.0)
[2020-09-10 12:54] LABS: URINE LEUKOCYTES-REFLEX 3+ (Negative)
[2020-09-10 12:55] LABS: AMP/METHAMP Negative (Negative); BARBITURATES Negative (Negative); BENZODIAZEPINES Negative (Negative); COCAINE Negative (Negative); METHADONE Negative (Negative); OPIATES Negative (Negative); PCP Negative (Negative)
[2020-09-10 13:33] LABS: CASTS None Seen /LPF (None Seen); SQUAMOUS None Seen /LPF (0-3); URINE WBC-REFLEX 6-15 Few /HPF (0-5)
[2020-09-10 13:34] LABS: BACTERIA-REFLEX 1-9 Few /HPF (None Seen); CRYSTALS None Seen /LPF (None Seen); URINE RBC None Seen /HPF (NONE SEEN)
[2020-09-10] MEDS ORDERED: KEFLEX250 MG/5 M PO (13:53)
[2020-09-10 14:14] VITALS: BP 133/72
== END 2020-09-10 14:31 | disposition home or self-care (01) ==
LOC: ER 09:26
PROVIDERS: Emergency Medicine
DX: R41.82 Altered mental status, unspecified (principal); N39.0 Urinary tract infection, site not specified; K21.9 Gastro-esophageal reflux disease without esophagitis; Z90.710 Acquired absence of both cervix and uterus

== ENCOUNTER → 2020-11-09 | Outpatient (CLI) | payer OTHER ==
[~2020-11-09] MED LIST changes: +FLORANEX TABLE1 EACH PO; +KEFLEX250 MG/5 M PO; +MELATONIN5 MG SUBLING; +MIDODRINE HCL 55 M1 PO
== END ==
LOC: RAD 09:53
PROVIDERS: ATTEND Pediatrics
DX: R06.02 Shortness of breath (principal); M41.84 Other forms of scoliosis, thoracic region; Z98.890 Other specified postprocedural states

== ENCOUNTER 2020-12-06 11:09 | Inpatient (IN) | payer OTHER ==
[~2020-12-06] VITALS: Ht 165.1 cm; Wt 68.9 kg
--- NOTE | ~2020-12-06 | EMS ---
[place] [id number] EMS Patient Care Report Name: MICHELLE DE LA CRUZ Room #: 170-16 ADM IN M.R.#: [id number] Admission: 12/06/20 Attend Phys: Shanti Hale MD Discharge: Date of : 51 Report #: [id number] THIS REPORT FOR: //name// Report Transmitted: 12/07/2020 14:15 EMS Care Summary [place], [place] Incident [id number] @ 12/06/2020 10:44 Incident Location [address] [place] [address] Patient MICHELLE DE LA CRUZ Male, 65 Years 1955 Patient Address [address] [place] [address] Patient History Stroke/CVA,Bipolar II Disorder,Depression,Hypotension, Patient Allergies No known allergies, Patient Medications Lamotrigine, Proair, Midodrine, Oxybutynin, Omeprazole, Melatonin, Olanzapine, Flonase, Chief Complaint GENERAL WEAKNESS Disposition Transported No Lights/[facility] Dispatch Reason Breathing Problem Transported To [facility] Narrative SCENE: ON ARRIVAL PT FOUND LYING IN BED IN LIVING ROOM OF ADDRESS PROVIDED. PT IS AWAKE AND ALERT WITH A GCS OF 15. PT FAMILY ON SCENE REPORTS PT HAS BEEN C/O GENERAL WEAKNESS, AND HAS EXHIBITE A DRY COUGH FOR A COUPLE DAYS. PT C/O [address] [address] EMS Patient Care Report Name: MICHELLE DE LA CRUZ Room #: 170-16 ADM IN M.R.#: [id number] Admission: 12/06/20 Attend Phys: Shanti Hale MD Discharge: Date of : 51 Report #: [id number] GENERAL WEAKNESS. PT AND PT FAMILY REQUESTS TRANSPORT TO [facility]. PT SLID TO EMS STRETCHER. AMBULANCE: VITALS MONITORED. NO CHANGES. Initial Vitals @10:57P: 108,R: 14,BP: 120/73,Pain: 2/10,GCS: 15,Revised Trauma: 12, @11:02P: 101,R: 14,BP: 102/65,Pain: 2/10,GCS: 15,SpO2: 92,Revised Trauma: 12, @11:01P: 101,R: 14,BP: 106/68,GCS: 15,Glucose: 150,SpO2: 91,Revised Trauma: 12, Assessments @10:52MENTAL:No Abnormalities,SKIN:No Abnormalities,HEENT:Head/Face: No Abnormalities,Eyes: No Abnormalities,Neck/Airway: No Abnormalities,LUNG SOUNDS:General: No Abnormalities,Left Upper: No Abnormalities,Right Upper: No Abnormalities,Left Lower: No Abnormalities,Right Lower: No Abnormalities,ABDOMEN:General: No Abnormalities,Left Upper: No Abnormalities,Right Upper: No Abnormalities,Left Lower: No Abnormalities,Right Lower: No Abnormalities,PELVIS//GI:No Abnormalities,EXTREMITIES:Left Arm: No Abnormalities,Right Arm: No Abnormalities,Left Leg: No Abnormalities,Right Leg: No Abnormalities,PULSE:NEURO:No Abnormalities,@11:04MENTAL:No Abnormalities,SKIN:No Abnormalities,HEENT:Head/Face: No Abnormalities,Eyes: No Abnormalities,Neck/Airway: No Abnormalities,LUNG SOUNDS:General: No Abnormalities,Left Upper: No Abnormalities,Right Upper: No Abnormalities,Left Lower: No Abnormalities,Right Lower: No Abnormalities,ABDOMEN:General: No Abnormalities,Left Upper: No Abnormalities,Right Upper: No Abnormalities,Left Lower: No Abnormalities,Right Lower: No Abnormalities,PELVIS//GI:No Abnormalities,EXTREMITIES:Left Arm: No Abnormalities,Right Arm: No Abnormalities,Left Leg: No Abnormalities,Right Leg: No Abnormalities,PULSE:NEURO:No Abnormalities, Impression Generalized Weakness Procedures @10:51ALS AssessmentResponse: UnchangedSucceeded@10:56StretcherResponse: Unchanged@10:55General CommentsResponse: Unchanged@10:58Saline Lock 0cc (18 ga) Site: Antecubital-RightResponse: UnchangedFailed Timeline 10:43,Call Received 10:43,Dispatch Notified 10:44,Dispatched 10:45,En Route 10:49,On Scene 10:51,At Patient 10:51,ALS Assessment,Response: UnchangedSucceeded, [facility] [address] [place] [address] EMS Patient Care Report Name: MICHELLE DE LA CRUZ Room #: 170-16 ADM IN M.R.#: [id number] Admission: 12/06/20 Attend Phys: Shanti Hale MD Discharge: Date of : 51 Report #: [id number] 10:55,General Comments,Response: Unchanged 10:56,Stretcher,Response: Unchanged 10:57,BP: 120/73 M,PULSE: 108,RR: 14 R,SPO2: Ox,ETCO2: ,BG: ,PAIN: 2,GCS: 15, 10:58,Saline Lock 0cc 18 ga Site: Antecubital-Right,Response: UnchangedFailed, 10:58,Depart Scene 11:01,BP: 106/68 M,PULSE: 101,RR: 14 R,SPO2: 91 Ox,ETCO2: ,B,PAIN: ,GCS: 15, 11:02,BP: 102/65 M,PULSE: 101,RR: 14 R,SPO2: 92 Ox,ETCO2: ,BG: ,PAIN: 2,GCS: 15, 11:05,At Destination 11:18,Call Closed Disclaimer v1.1 Copyright 2020 [employer] This EMS Care Summary contains data elements from the applicable legal record (which may be displayed differently). It is designed to provide pertinent information for the following purposes: continuity of care, clinical quality, and state data reporting. The complete legal record is available to ED staff and administrators of the receiving hospital in [employer] Patient Tracker. All data is provided "as is."
[2020-12-06 11:12] VITALS: BP 117/58
[2020-12-06 11:45] LABS: CALCIUM 8.9 mg/dL (8.5-10.1); CREATININE 0.8 mg/dL (0.6-1.0); POTASSIUM 4.2 mmol/L (3.5-5.1)
[2020-12-06 11:49] LABS: ABSOLUTE NEUTROPHILS 7.2 thou/uL (1.4-8.2); BASOPHILS 0.5 % (0.0-2.0); HEMATOCRIT 36.4 % (37.0-47.0); HEMOGLOBIN 12.5 gm/dL (12.0-15.0); LYMPHOCYTES 5.3 % (24.0-44.0); MCH 33.3 pg (26.0-34.0); MCHC 34.3 g/dL (28.0-37.0); MCV 97.2 fL (80.0-100.0); MONOCYTES 9.5 % (1.0-8.0); PLATELET COUNT 207 thou/uL (150-400); POLYS 84.7 % (36.0-66.0); RBC 3.75 mil/uL (4.20-5.00); RDW 14.9 % (10.5-14.5); WBC 8.5 thou/uL (4.0-11.0)
[2020-12-06 11:55] LABS: ALBUMIN 3.4 g/dL (3.4-5.0); TOTAL BILIRUBIN 0.8 mg/dL (0.2-1.0); TOTAL PROTEIN 6.9 g/dL (6.4-8.2)
[2020-12-06] MEDS ORDERED: TYLENOL325 MG PO (14:50)
[2020-12-06] MEDS ORDERED: REGLAN 5 MG TAB5 MG PO (14:50)
[2020-12-06] MEDS ORDERED: KEPPRA XR500 MG (14:51)
--- NOTE | 2020-12-06 15:54 | EKG ---
[place] [address] [facility] [employer] [place] [address] ELECTROCARDIOGRAM REPORT Name: MICHELLE DE LA CRUZ [facility] [id number] Admission: 12/06/20 Attend Phys: Discharge: Date of : 51 Report #: [id number] [facility] ED Test Date: 2020-12-06 Test Time: 11:15:52 Pat Name: MICHELLE DE LA CRUZ Department: Room: Gender: F Educational Fundraising Director: Kati MACHUCA : 1955 Requested By: Kayleen Amos Order Number: [id number] MD: Roly Davies Measurements Intervals [place] Rate: 96 P: 14 AR: 166 QRS: -7 QRSD: 83 T: 27 QT: 361 QTc: 457 Interpretive Statements Sinus rhythm Low voltage, extremity leads Compared to ECG 09/10/2020 09:47:50 Sinus bradycardia no longer present Electronically Signed On 12-06-2020 15:54:05 CDT by Roly Davies [email or web address] <ELECTRONICALLY SIGNED> By: Roly Davies MD, [facility] 12/06/20 1554 1115 1115 Roly Davies MD, FACC /EPI
[2020-12-07 00:08] VITALS: BP 122/58
[2020-12-07 04:36] LABS: HCO3 18.2 mmol/L (22.0-26.0); PCO2 25.7 mmHg (35.0-45.0); PO2 66.4 mmHg (80.0-100.0); pH 7.469 (7.360-7.450); sO2 94.6 % (92.0-98.0)
--- NOTE | 2020-12-07 04:39 | NUR ---
ASSUMED CARE OF PATIENT 12/06/202019. PATIENT MOVED TO ROOM 16 IN BACK OF EMERGENCY DEPARTMENT. PT AAOX3 AND COOPERATIVE. STATES THAT SHE IS WAITING FOR HER TO COME SEE HER. STATES THAT SHE HAS FELT SHORT OF BREATH. PATIENT ON 3L NC INITIALLY. AT THIS TIME SHE IS 95% 02. ALL OTHER VSS. DENIES PAIN AT THIS TIME. PATIENT UNSETADY ON HER FEET AND WAS ASSISTED TO THE RESTROOM. NOTED THAT PATIENT HAS PEG TUBE IN PLACE THAT APPEARS IN GOOD CONDITION. NO S/S OF INFECTION OR IRRITATION. APPROXIMATELY 0030 PATIENT 02 SAT DOWN TO 88% PATIENT IS HAVING A COUGHING EPISODE THAT IS CAUSING HER TO TEAR UP. NOTOFEOD RT FOR PRN BREATHING TREATMENT. NOTED MILE CRACKES AT THIS TIME. PT O2 INCREASED TO 3L AT NOW 93%. 0300 PATIENT IS NOW HAVING SOME VISUAL HALLUCINATIONS. SHE IS LOOKING OVER THE EDGE OF THE BED STATING THAT HER CAT WAS RUNNING UNDER THE BED. CRACKLES ARE AUDIBLE AT THIS TIME. 02 SAT 87% PATIENT IS COUGHING AGAIN BUT SCANT PRODUCTION NOTED. NOTIFIED POLISHER SAND OF PATIENT STATUS. O2 IS INCREASED TO 4L. ABG ORDERED AND CONSULTATION TO PULMONARY ORDERED. PATIENT IS NOW IN HER ROOM YEALLING FOR "JULIANNE" WHICH IS HER HUSBANDS NAME. SHE IS BANGING ON THE TRASH CAN SAYING THAT IT IS HER DOG. CONTINUED TO REORIENT PATIENT TO HER ENVIRONMENT. RT AT BEDSIDE FOR ABG. WILL CONTINUE TO MONITOR FPR CHANGES IN STATUS.
[2020-12-07 15:58] VITALS: BP 122/66
[2020-12-07 16:35] VITALS: BP 128/64
[2020-12-07 20:11] VITALS: BP 139/59
--- NOTE | 2020-12-08 04:19 | NUR ---
Pt. became delusional at the first of the shift and was looking for her dog. She knew she was in the hospital, but very concerned about her dog. She was attempting to get up out of bed to look for it. Unable to orient pt. that there was no dog here. Called her spouse and she spoke to him and he was able to calm pt. down and give reassurance. She did rest quietly during the night. No c/o shortness of air. Bed alarm is on.
[2020-12-08 05:23] LABS: HEMATOCRIT 30.5 % (37.0-47.0); HEMOGLOBIN 10.6 gm/dL (12.0-15.0); MCH 33.5 pg (26.0-34.0); MCHC 34.7 g/dL (28.0-37.0); MCV 96.7 fL (80.0-100.0); RBC 3.15 mil/uL (4.20-5.00); RDW 14.8 % (10.5-14.5)
[2020-12-08 05:38] LABS: CALCIUM 8.3 mg/dL (8.5-10.1); CREATININE 0.6 mg/dL (0.6-1.0); POTASSIUM 3.4 mmol/L (3.5-5.1)
[2020-12-08 07:55] VITALS: BP 115/54
--- NOTE | 2020-12-08 14:15 | NUR ---
Assumed pt care at 7am.Pt up min chair resting with o2 on.Assessment completed.vss.Pt c/o wt gain with jevity per peg tube at home.Dietitian notified,new recommendation noted.Pt tolerated meds. Pt kept npo for aspiration pneumonia.Tube feedign with be started this afternoon when receive from mexican food cook.No further c/o.Will continue to monitor.
[2020-12-08 15:35] VITALS: BP 114/63
--- NOTE | 2020-12-08 15:58 | NUR ---
PT ADMITTED RELAATED TO ACUTE RESP FAILURE. CM REVIEWED CHART AND SPOKE WITH CARE TEAM. CM MET WITH PT AT BEDSIDE THIS DAY. PT APPEARAS TO BE A&O X4. CM ROLE INTRODUCED. PT INDICATED SHE RESIDES IN A HOUSE WITH HER SPOUSE WITH RAMPS TO ENTER AND NO STEPS INSIDE. PT INDICATED SHE HAD BEEN USING A FWW TO ASSIST WITH MOBILITY PSYCHOLOGIST EDUCATIONAL. PT INDICATED SHE HAD [facility] IN THE PAST AND THAT IF NEEDED SHE WOULD WANT TO USE THEM AGAIN UPON DC. PT INDICATED SHE PLANS TO DC HOME ONCE MEDICALLY STABLE. PT INDICATED NO HOME O2 OR NEBULIZER FOR HOME USE. PT IS ON O2 CURRENTLY. CM CALLED AND SPOKE WITH EX JULIANNE LUCAS AND HE CONFIRMED THE ABOVE. CM FOLLOWING REGARDING DC PLANNING.
[2020-12-08 19:48] VITALS: BP 112/68
--- NOTE | 2020-12-09 02:37 | NUR ---
TODAY THIS PT HAS BEEN ASLEEP FOR MOST OF THE NIGHT WHILE TOLERATING HER ANTIBIOTICS WELL G TUB CONTINUOS FEEDINGS WELL. SHE HAS USED THE BESC ONCE SO FAR AND OTHERWISE HAS BEEN ASLEEP. SHE IS TOLERATING 2L OF OXYGEN WELL.
[2020-12-09 08:04] VITALS: BP 114/66
--- NOTE | 2020-12-09 11:13 | NUR ---
Assumedpt care this am, vs stable. Received NPO but with a PEG tube with feeding of Jevity 1.5 running at goal rate of 50cc, 240 ml jaxson 6 hours flushes. t is a x1 with a walker. POC followed.
[2020-12-09 16:13] VITALS: BP 121/75
[2020-12-09 19:11] VITALS: BP 123/71
[2020-12-10 05:30] LABS: ABSOLUTE NEUTROPHILS 2.6 thou/uL (1.4-8.2); BASOPHILS 1.4 % (0.0-2.0); EOSINOPHILS 2.5 % (0.0-3.0); HEMOGLOBIN 10.7 gm/dL (12.0-15.0); LYMPHOCYTES 18.7 % (24.0-44.0); MCH 32.4 pg (26.0-34.0); MCHC 33.4 g/dL (28.0-37.0); MCV 97.1 fL (80.0-100.0); MONOCYTES 11.8 % (1.0-8.0); PLATELET COUNT 204 thou/uL (150-400); POLYS 65.6 % (36.0-66.0); RBC 3.29 mil/uL (4.20-5.00); RDW 14.7 % (10.5-14.5); WBC 3.9 thou/uL (4.0-11.0)
--- NOTE | 2020-12-10 06:00 | NUR ---
Pt. rested quietly at interals during the night when checked on during frequent rounds. She offers no c/o pain or shortness of air. Tube feeding infusing without difficulty. Bed alarm is on.
[2020-12-10 06:13] LABS: ALBUMIN 2.4 g/dL (3.4-5.0); CALCIUM 7.9 mg/dL (8.5-10.1); CREATININE 0.6 mg/dL (0.6-1.0); PHOSPHORUS 3.6 mg/dL (2.5-4.9); POTASSIUM 3.8 mmol/L (3.5-5.1); TOTAL BILIRUBIN 0.6 mg/dL (0.2-1.0); TOTAL PROTEIN 5.6 g/dL (6.4-8.2)
[2020-12-10 06:26] VITALS: BP 103/68
[2020-12-10 07:48] VITALS: BP 115/65
--- NOTE | 2020-12-10 12:12 | NUR ---
Assumed pt care this am vs stable. Maintained NPO, tube feeding continous with no issues, whole set replaced in the am. Productive cough is noted. All medications are given via peg tube, informed pharmacy for medication to be converted d/t clogging risk of the peg tube. Pharmacy is limited as verbalized by them, medications have been reviewed and current meds and forms are all that they can change. POC followed with no signs or verbalizations of distress noted.
[2020-12-10 16:18] VITALS: BP 113/71
[2020-12-10 20:37] VITALS: BP 133/76
--- NOTE | 2020-12-11 02:16 | NUR ---
Assumed pt care at 1900. A/0X3,but able to make needs known. Denies pain on assessment. VSS. Up with AX1 RW/GB to BSC. Continent of B&B. Pt has a PEG tube with Jevity 1.5 infusing at goal rate 50ml/hr,240cc water flush Q6 hr. Pt supposed to have a PIPIDA scan today,tube feeding turned off @ midnight. Remains NPO oral care done as needed. Fall precautions in place,calls approp for help,resting quietly at this time will continue to monitor pt.
[2020-12-11 02:57] LABS: ABSOLUTE NEUTROPHILS 3.3 thou/uL (1.4-8.2); BASOPHILS 0.7 % (0.0-2.0); EOSINOPHILS 1.6 % (0.0-3.0); HEMATOCRIT 31.8 % (37.0-47.0); HEMOGLOBIN 10.9 gm/dL (12.0-15.0); LYMPHOCYTES 15.3 % (24.0-44.0); MCH 33.3 pg (26.0-34.0); MCHC 34.3 g/dL (28.0-37.0); MCV 97.3 fL (80.0-100.0); MONOCYTES 9.6 % (1.0-8.0); PLATELET COUNT 250 thou/uL (150-400); POLYS 72.8 % (36.0-66.0); RBC 3.27 mil/uL (4.20-5.00); RDW 14.6 % (10.5-14.5); WBC 4.6 thou/uL (4.0-11.0)
[2020-12-11 03:25] LABS: ALBUMIN 2.5 g/dL (3.4-5.0); CALCIUM 8.2 mg/dL (8.5-10.1); CREATININE 0.6 mg/dL (0.6-1.0); DIRECT BILIRUBIN 0.2 mg/dL (<0.1-0.2); POTASSIUM 3.6 mmol/L (3.5-5.1); TOTAL BILIRUBIN 0.6 mg/dL (0.2-1.0); TOTAL PROTEIN 6.4 g/dL (6.4-8.2)
[2020-12-11 08:26] VITALS: BP 113/63
--- NOTE | 2020-12-11 12:35 | NUR ---
Assumed pt care this am, feeding pump on hold d/t ppipida scan. Maintained NPO, fluids and medications given as per emar. No signs or verbalizations of distress noted. at the bedsivde. Not comfortable with the pt gpoig home since she is not at baseline with adl's and ambulations. Plan is to worhk with PT and OT and will reassess tomorrow.
[2020-12-11 16:47] VITALS: BP 125/57
[2020-12-11 20:54] VITALS: BP 119/72
--- NOTE | 2020-12-12 04:25 | NUR ---
Assumed pt care at 1900. A/OX4,VSS.Still has a congested cough,reports white phlegm,no SOA. Denies pain on assessment. Up with AX1,RW/GB to BSC.Continent of b&b. PEG tube patent with Jevity 1.5 infusing at 50ml/hr with no residual noted. Pt looking forward to dc home soon.Fall precautions in place,will continue to monitor pt.
[2020-12-12 07:37] VITALS: BP 132/80
--- NOTE | 2020-12-12 12:49 | NUR ---
Assumed pt care at 7am.Pt in bed resting and watching tv.Assessment completed. vss.Pt was anxious about going home today but worried about coughing all night.Guafenesin susp given . Pt all meds .Tube feeding in progress with water flushes. No further c/o. Will continue to monitor.
[2020-12-12] MEDS ORDERED: RISPERIDONE1 MG/1 M2 PO (14:14)
[2020-12-12] MEDS ORDERED: IPRAT-ALBUT 0.5-3 ML INH (14:14)
[2020-12-12] MEDS ORDERED: AUGMENTIN600 MG/5 M PO (14:14)
[2020-12-12] MEDS ORDERED: DOXYCYCLINE HY100 M3 PO (14:14)
[2020-12-12] MEDS ORDERED: PREDNISONE 20 M20 MG PO (14:14)
[2020-12-12 14:33] VITALS: BP 132/80
[2020-12-12 16:00] VITALS: BP 122/75
[2020-12-12 16:47] VITALS: BP 132/80
--- NOTE | 2020-12-12 16:48 | NUR ---
PT TO DC HOME THIS DAY WITH [facility]. PT NEEDED 2L WITH [facility]. [facility] CAN ACCPET PT FOR SERVICES UPON DC WITH SOC FRIDAY. LYRIC MASON WAS DELIVERED BY [facility]. CM CALLED AND NOTIFIED PT'S SO JULIANNE HE IS AWARE AND AGREEABLE WITH DC HOME THIS DAY WITH [facility]. CM ARRANGED [employer] BETWEEN [phone]. ORDERS FAXED TO [facility] AND [facility]. NO OTHER CM INTERVENTION INDICATED. CASE CLOSED.
[2020-12-12 17:00] VITALS: BP 132/80
== END 2020-12-12 18:30 | disposition home health service (06) | DRG 177 ==
LOC: ER 11:09 → 4W 23:55 → EROBS 23:55 → 4W 12-07 16:34
PROVIDERS: Internal Medicine; Internal Medicine Pulmonary Disease; Nurse Practitioner Family; Student in an Organized Health Care Education/Training Program; ADMIT Hospitalist; ATTEND Hospitalist
DX: J69.0 Pneumonitis due to inhalation of food and vomit (principal); G93.41 Metabolic encephalopathy; J96.21 Acute and chronic respiratory failure with hypoxia; E43 Unspecified severe protein-calorie malnutrition; F31.9 Bipolar disorder, unspecified; Z20.822 Contact with and (suspected) exposure to COVID-19; K21.9 Gastro-esophageal reflux disease without esophagitis; F41.9 Anxiety disorder, unspecified; R13.10 Dysphagia, unspecified; R53.81 Other malaise; R74.01 Elevation of levels of liver transaminase levels; K08.409 Partial loss of teeth, unspecified cause, unspecified class; D64.9 Anemia, unspecified; E53.8 Deficiency of other specified B group vitamins; Z68.25 Body mass index [BMI] 25.0-25.9, adult; Z90.710 Acquired absence of both cervix and uterus; Z93.1 Gastrostomy status; Z86.73 Personal history of transient ischemic attack (TIA), and cerebral infarction without residual deficits; Z87.891 Personal history of nicotine dependence; Z93.0 Tracheostomy status
CPT/HCPCS: 10040

== ENCOUNTER → 2020-12-22 | Outpatient (CLI) | payer OTHER ==
[~2020-12-22] MED LIST changes: +AUGMENTIN600 MG/5 M PO; +DOXYCYCLINE HY100 M3 PO; +IPRAT-ALBUT 0.5-3 ML INH; +KEPPRA XR500 MG; +PREDNISONE 20 M20 MG PO; +RISPERIDONE1 MG/1 M2 PO; +TYLENOL325 MG PO
== END ==
LOC: RAD 11:10
PROVIDERS: ATTEND Family Medicine
DX: R05 Cough (principal); M41.84 Other forms of scoliosis, thoracic region

== ENCOUNTER → 2020-12-29 | Outpatient (CLI) | payer OTHER | LOC: RAD 11:29 | PROVIDERS: ATTEND Family Medicine | DX: K44.9 Diaphragmatic hernia without obstruction or gangrene (principal); J84.9 Interstitial pulmonary disease, unspecified; J98.4 Other disorders of lung; R05 Cough ==

== ENCOUNTER 2021-04-01 14:08 | Emergency (ER) | payer OTHER ==
[~2021-04-01] VITALS: Ht 165.1 cm; Wt 56.2 kg
--- NOTE | ~2021-04-01 | EMS ---
[place] [address] EMS Patient Care Report Name: MICHELLE DE LA CRUZ Room #: DEP CRISTINO Javed#: [id number] Admission: 04/01/21 Attend Phys: Discharge: 04/02/21 Date of : 51 Report #: [id number] THIS REPORT FOR: //name// Report Transmitted: 04/02/2021 14:52 EMS Care Summary [place], [place]/[facility] Incident [id number] @ 04/01/2021 13:37 Incident [address] [place] [address] Patient MICHELLE DE LA CRUZ Female, 65 Years 1955 Patient Address [address] [place] [address] Patient History None Reported, Patient Allergies No known allergies, Patient Medications Unknown, Chief Complaint SOA Disposition Transported No Lights/[place] Dispatch Reason Sick Person Transported To [facility] Narrative Upon arrival PT was sitting in the upright position on bed in the living room. PT had a CC of SOA. PT stated that she had been seen by nurse practitioner prior in the day and was diagnosed with an ammonia. PT stated she had just started on antibiotics today. PT was assisted to [place] [address] EMS Patient Care Report Name: MICHELLE DE LA CRUZ Room #: DEP ER WilliamMari#: [id number] Admission: 04/01/21 Attend Phys: Discharge: 04/02/21 Date of : 51 Report #: [id number] back of ambulance for further medical evaluation and intervention. PT was then monitored while en route to hospital for any change in condition. Initial Vitals @13:55P: 107,R: 18,BP: 114/90,Pain: 0/10,GCS: 15,CO: 2,SpO2: 96,Revised Trauma: 12, @14:00P: 108,R: 18,BP: 112/74,Pain: 0/10,GCS: 15,CO: 3,SpO2: 95,Revised Trauma: 12, Assessments @13:43MENTAL:No Abnormalities,SKIN:No Abnormalities,HEENT:Head/Face: No Abnormalities,Eyes: No Abnormalities,Neck/Airway: No Abnormalities,LUNG SOUNDS:General: No Abnormalities,Left Upper: No Abnormalities,Right Upper: No Abnormalities,Left Lower: No Abnormalities,Right Lower: No Abnormalities,ABDOMEN:General: No Abnormalities,Left Upper: No Abnormalities,Right Upper: No Abnormalities,Left Lower: No Abnormalities,Right Lower: No Abnormalities,PELVIS//GI:EXTREMITIES:PULSE:NEURO: Impression Acute Respiratory Distress (Dyspnea) Procedures @13:43 ALS Assessment Response: UnchangedSucceeded @PTAOxygen FlowRate: 6 Device: Nasal Cannula (NC) Response: UnchangedSucceeded 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,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: 6 Device: Nasal Cannula (NC) Response: UnchangedSucceeded, 13:35,Call Received 13:35,Dispatch Notified 13:37,Dispatched 13:37,En Route 13:42,On Scene 13:43,At Patient 13:43,ALS Assessment,Response: UnchangedSucceeded, 13:55,BP: 114/90 M,PULSE: 107,RR: 18 R,SPO2: 96 Ox,ETCO2: ,BG: ,PAIN: 0,GCS: 15, 13:55,Depart Scene 14:00,BP: 112/74 M,PULSE: 108,RR: 18 R,SPO2: 95 Ox,ETCO2: ,BG: ,PAIN: 0,GCS: 15, 14:03,At Destination 14:16,Call Closed Disclaimer v1.1 Copyright 2020 [employer] This EMS Care Summary contains data elements from the applicable legal record [address] [address] EMS Patient Care Report Name: MICHELLE DE LA CRUZ [facility] [id number] Admission: 04/01/21 Attend Phys: Discharge: 04/02/21 Date of : 51 Report #: [id number] (which may be displayed differently). It is designed to provide pertinent information for the following purposes: continuity of care, clinical quality, and state data reporting. The complete legal record is available to ED staff and administrators of the receiving hospital in [employer]'s Patient Tracker. All data is provided "as is."
[2021-04-01 17:11] LABS: ABSOLUTE NEUTROPHILS 7.6 thou/uL (1.4-8.2); BASOPHILS 2.6 % (0.0-2.0); EOSINOPHILS 2.2 % (0.0-3.0); HEMATOCRIT 38.4 % (37.0-47.0); HEMOGLOBIN 13.2 gm/dL (12.0-15.0); LYMPHOCYTES 9.5 % (24.0-44.0); MCH 33.3 pg (26.0-34.0); MCHC 34.4 g/dL (28.0-37.0); MCV 96.9 fL (80.0-100.0); MONOCYTES 6.1 % (1.0-8.0); PLATELET COUNT 269 thou/uL (150-400); POLYS 79.6 % (36.0-66.0); RBC 3.96 mil/uL (4.20-5.00); RDW 14.3 % (10.5-14.5); WBC 9.5 thou/uL (4.0-11.0)
[2021-04-01 17:21] LABS: CALCIUM 9.3 mg/dL (8.5-10.1); CREATININE 0.6 mg/dL (0.6-1.0); POTASSIUM 4.3 mmol/L (3.5-5.1)
[2021-04-01 17:26] LABS: ALBUMIN 3.5 g/dL (3.4-5.0); D-DIMER 0.65 ug/mLFEU (0.19-0.50); PROTIME 10.9 Seconds (10.5-12.1); TOTAL BILIRUBIN 0.7 mg/dL (0.2-1.0); TOTAL PROTEIN 7.5 g/dL (6.4-8.2)
[2021-04-01] MEDS ORDERED: SYMBICORT80 MCG/4.1 INH (18:01)
[2021-04-01] MEDS ORDERED: LEVETIRACE100 MG/1 M PER TUBE (18:02)
[2021-04-01] MEDS ORDERED: LAMOTRIGINE200 MG PO (18:02)
[2021-04-01] MEDS ORDERED: METOCLOPRAMIDE 55 M1 PO (18:02)
[2021-04-01] MEDS ORDERED: MIDODRINE HCL10 MG PO (18:02)
[2021-04-01] MEDS ORDERED: OMEPRAZOLE40 MG PO (18:04)
[2021-04-01] MEDS ORDERED: AZITHROMYCIN500 MG PO (20:30)
[2021-04-02 00:01] VITALS: BP 103/66
== END 2021-04-02 00:20 | disposition home or self-care (01) ==
LOC: ER 14:08
PROVIDERS: Nurse Practitioner
DX: J18.9 Pneumonia, unspecified organism (principal); Z20.822 Contact with and (suspected) exposure to COVID-19

== ENCOUNTER 2021-04-30 12:03 | Emergency (ER) | payer OTHER ==
[~2021-04-30] VITALS: Ht 165.1 cm; Wt 66.2 kg
[~2021-04-30 12:03] MED LIST changes: +AZITHROMYCIN500 MG PO; +LAMOTRIGINE200 MG PO; +LEVETIRACE100 MG/1 M PER TUBE; +METOCLOPRAMIDE 55 M1 PO; +MIDODRINE HCL10 MG PO; +SYMBICORT80 MCG/4.1 INH
[2021-04-30 14:12] VITALS: BP 100/60
== END 2021-04-30 14:12 | disposition home or self-care (01) ==
LOC: ER 12:03
DX: K94.23 Gastrostomy malfunction (principal); Z85.01 Personal history of malignant neoplasm of esophagus; Z79.51 Long term (current) use of inhaled steroids; Z79.891 Long term (current) use of opiate analgesic; Z79.899 Other long term (current) drug therapy

== ENCOUNTER 2021-05-18 09:27 | Emergency (ER) | payer OTHER ==
[~2021-05-18] VITALS: Ht 165.1 cm; Wt 73.0 kg
[2021-05-18 14:32] VITALS: BP 112/74
== END 2021-05-18 14:10 | disposition home or self-care (01) ==
LOC: ER 09:27
DX: K94.13 Enterostomy malfunction (principal); Z79.51 Long term (current) use of inhaled steroids; Z79.891 Long term (current) use of opiate analgesic; Z79.899 Other long term (current) drug therapy; Z79.1 Long term (current) use of non-steroidal anti-inflammatories (NSAID)